=== PATIENT | male | born 1985 | race African-American/Black ===

== ENCOUNTER 2024-05-21 12:47 | Inpatient (IN) | payer MEDICAID, OTHER ==
[~2024-05-21] VITALS: Ht 185.4 cm; Wt 62.3 kg
[2024-05-21 13:48] LABS: Basophils # (auto) 0 10 ^3/uL (0-0.2); Basophils % (auto) 0.7 % (0.0-2.0); Eosinophils # (auto) 0 10 ^3/uL (0-0.8); Eosinophils % (auto) 0.5 % (0.0-7.0); Hematocrit 41.9 % (41.0-53.0); Hemoglobin 14.1 g/dL (13.5-17.5); Lymphocytes # (auto) 1.3 10 ^3/uL (0.4-5.4); Lymphocytes % (auto) 21.6 % (10.0-50.0); Mean Corpuscular Hemoglobin 30.7 pg (28.0-32.0); Mean Corpuscular Hgb Conc. 33.7 g/dL (32.0-36.0); Mean Corpuscular Volume 91.1 fL (80.0-100.0); Monocytes # (auto) 0.4 10 ^3/uL (0-1.3); Monocytes % (auto) 6.2 % (0.0-12.0); Neutrophils # (auto) 4.3 10 ^3/uL (1.6-8.6); Nucleated Red Blood Cells % 0.1 %; Platelet Count (auto) 197 10^3/uL (140-450); Red Blood Cells 4.59 10^6/uL (4.5-5.90); Red Cell Distribution Width 14.9 % (11.8-14.3); White Blood Cell 6.1 10^3/uL (4.4-10.8)
[2024-05-21 14:01] LABS: Chloride 112 mmol/L (98-107); Potassium 4.3 mmol/L (3.5-5.1); Sodium 145 mmol/L (136-145)
[2024-05-21 14:02] LABS: Anion Gap 6 (5-15); Carbon Dioxide 27 mmol/L (20-30)
[2024-05-21 14:03] LABS: Calcium 9.2 mg/dL (8.7-10.4)
[2024-05-21 14:08] LABS: BUN/Creatinine Ratio 14.8 (10.0-20.0); Blood Urea Nitrogen 18 mg/dL (9-23); Glucose 80 mg/dL (74-106)
[2024-05-21 16:16] LABS: Urine Bacteria None Seen /hpf (None Seen)
[2024-05-21] MEDS: IOHEXOL 350 MG/ML 100ML IJ ONE (16:16)
[2024-05-21 16:29] LABS: Urine Blood Negative /uL (Negative); Urine Clarity Clear (Clear); Urine Color Yellow (Yellow); Urine Mucus FEW (None Seen); Urine Protein, UAD TRACE (Negative); Urine Specific Gravity 1.031 (1.001-1.035); Urine Urobilinogen 12 mg/dL (Negative); Urine WBC 1 /hpf (0 - 3); Urine pH 6.5 (5.0-9.0)
[2024-05-21 18:13] LABS: COVID19 ANTIGEN SOFIA FIA NEGATIVE (NEGATIVE)
[2024-05-21] MEDS: cefTRIAXone 1GM/50ML D5W 50 ML IV ONE (18:56)
[2024-05-21] MEDS ORDERED: ONDANSETRON HCL 4 MG/2 ML VIAL IV PRN (20:00)
[2024-05-21] MEDS ORDERED: NITROGLYCERIN 0.4 MG SL TAB SL PRN (20:00)
[2024-05-21] MEDS ORDERED: ACETAMINOPHEN 325 MG TAB PO PRN (20:00)
[2024-05-21] MEDS ORDERED: MORPHINE SULFATE INJ 2 MG/ml SYRG IV PRN (20:00)
[2024-05-21] MEDS ORDERED: HYDROcodone-ACET 5/325MG TAB PO PRN (20:00)
[2024-05-21] MEDS ORDERED: DOCUSATE SOD 100 MG CAP PO PRN (20:00)
[2024-05-21 20:15] VITALS: PULSE 111; RESP 16; O2SAT 96
[2024-05-21 20:34] VITALS: BP 144/105; PULSE 111; RESP 18; TEMP 98.7; O2SAT 99
[2024-05-21 21:05] LABS: Amphetamine Screen, Urine Neg (NEGATIVE); Barbiturate Scree,Urine Neg (NEGATIVE); Benzodiazephine Screen, Urine Neg (NEGATIVE); Cannabinoid Screen, Urine Pos (NEGATIVE); Cocaine Screen, Urine Neg (NEGATIVE); Opiate Scree,Urine Neg (NEGATIVE); Phencyclidine Screen, Urine Neg (NEGATIVE)
[2024-05-21 23:03] VITALS: BP 141/96; PULSE 117; RESP 16; RESP 18; TEMP 98.3; O2SAT 97; O2SAT 98
[2024-05-21] MEDS ORDERED: SUMA100T15 PO (23:42)
[2024-05-22] VITALS (13 sets, daily range): BP systolic 119–144; BP diastolic 71–106; PULSE 93–112; RESP 16–20; TEMP 97.2–98.1; O2SAT 95–100
[2024-05-22] MEDS: FUROSEMIDE 40 MG/4 ML VIAL IV ONE (00:13)
[2024-05-22] MEDS: FUROSEMIDE 40 MG/4 ML VIAL IV SCH (05:25)
[2024-05-22 06:39] LABS: Basophils # (auto) 0 10 ^3/uL (0-0.2); Basophils % (auto) 0.6 % (0.0-2.0); Eosinophils # (auto) 0.1 10 ^3/uL (0-0.8); Eosinophils % (auto) 1.4 % (0.0-7.0); Hematocrit 42.3 % (41.0-53.0); Lymphocytes # (auto) 2.2 10 ^3/uL (0.4-5.4); Lymphocytes % (auto) 32.4 % (10.0-50.0); Mean Corpuscular Hemoglobin 29.9 pg (28.0-32.0); Mean Corpuscular Hgb Conc. 33.2 g/dL (32.0-36.0); Mean Corpuscular Volume 90.1 fL (80.0-100.0); Monocytes # (auto) 0.4 10 ^3/uL (0-1.3); Monocytes % (auto) 5.7 % (0.0-12.0); Neutrophils % (auto) 59.9 % (37.0-80.0); Nucleated Red Blood Cells % 0.1 %; Platelet Count (auto) 189 10^3/uL (140-450); Red Blood Cells 4.69 10^6/uL (4.5-5.90); Red Cell Distribution Width 14.7 % (11.8-14.3); White Blood Cell 6.6 10^3/uL (4.4-10.8)
[2024-05-22 06:48] LABS: Chloride 109 mmol/L (98-107); Potassium 4.3 mmol/L (3.5-5.1); Sodium 143 mmol/L (136-145)
[2024-05-22 06:49] LABS: Anion Gap 7 (5-15); Calcium 9.5 mg/dL (8.7-10.4); Carbon Dioxide 27 mmol/L (20-30)
[2024-05-22 06:54] LABS: Blood Urea Nitrogen 16 mg/dL (9-23); Glucose 102 mg/dL (74-106)
[2024-05-22] MEDS: cefTRIAXone 1GM/50ML D5W 50 ML IV SCH (09:36)
[2024-05-22] MEDS: ENOXAPARIN SOD 40 MG/0.4 ML SYRINGE SC SCH (09:36)
[2024-05-22] MEDS: AZITHROMYCIN 500MG/ 250ML 250 ML IV SCH (10:21)
[2024-05-22] MEDS: ALBUTEROL SULF 2.5 MG/0.5ML(0.5%) NEB SOLN NEB PRN (16:06)
[2024-05-22] MEDS: IPRATROPIUM BROM 0.5 MG/2.5ML INH SOL NEB PRN (16:06)
[2024-05-23] VITALS (8 sets, daily range): BP systolic 105–148; BP diastolic 73–101; PULSE 97–120; RESP 16–18; TEMP 97.2–98.2; O2SAT 95–100
[2024-05-23 06:42] LABS: Basophils # (auto) 0.1 10 ^3/uL (0-0.2); Basophils % (auto) 1.5 % (0.0-2.0); Eosinophils # (auto) 0.1 10 ^3/uL (0-0.8); Eosinophils % (auto) 2.4 % (0.0-7.0); Hematocrit 47.1 % (41.0-53.0); Hemoglobin 15.9 g/dL (13.5-17.5); Lymphocytes # (auto) 2.2 10 ^3/uL (0.4-5.4); Lymphocytes % (auto) 39.6 % (10.0-50.0); Mean Corpuscular Hemoglobin 30.5 pg (28.0-32.0); Mean Corpuscular Hgb Conc. 33.7 g/dL (32.0-36.0); Mean Corpuscular Volume 90.3 fL (80.0-100.0); Monocytes # (auto) 0.3 10 ^3/uL (0-1.3); Neutrophils # (auto) 2.9 10 ^3/uL (1.6-8.6); Neutrophils % (auto) 51.5 % (37.0-80.0); Nucleated Red Blood Cells % 0.6 %; Platelet Count (auto) 198 10^3/uL (140-450); Red Blood Cells 5.22 10^6/uL (4.5-5.90); Red Cell Distribution Width 15.1 % (11.8-14.3); White Blood Cell 5.6 10^3/uL (4.4-10.8)
[2024-05-23 07:02] LABS: Anion Gap 8 (5-15); Carbon Dioxide 30 mmol/L (20-30); Chloride 105 mmol/L (98-107); Potassium 3.8 mmol/L (3.5-5.1); Sodium 143 mmol/L (136-145)
[2024-05-23 07:03] LABS: Calcium 9.8 mg/dL (8.7-10.4)
[2024-05-23 07:08] LABS: BUN/Creatinine Ratio 12.9 (10.0-20.0); Blood Urea Nitrogen 16 mg/dL (9-23); Glucose 94 mg/dL (74-106)
[2024-05-23] MEDS: SACUBITRIL-VALSARTAN 24mg/26mg TAB PO SCH (22:31)
[2024-05-23] MEDS: CARVEDILOL 3.125 MG TAB PO SCH (22:32)
[2024-05-24] VITALS (15 sets, daily range): BP systolic 112–144; BP diastolic 69–87; PULSE 87–111; RESP 16–18; TEMP 97.4–98.4; O2SAT 94–100
[2024-05-24 05:41] LABS: Basophils # (auto) 0 10 ^3/uL (0-0.2); Basophils % (auto) 0.9 % (0.0-2.0); Eosinophils # (auto) 0.1 10 ^3/uL (0-0.8); Eosinophils % (auto) 2.1 % (0.0-7.0); Hematocrit 42.2 % (41.0-53.0); Hemoglobin 14.2 g/dL (13.5-17.5); Lymphocytes # (auto) 2.5 10 ^3/uL (0.4-5.4); Lymphocytes % (auto) 44.6 % (10.0-50.0); Mean Corpuscular Hemoglobin 30.3 pg (28.0-32.0); Mean Corpuscular Hgb Conc. 33.8 g/dL (32.0-36.0); Mean Corpuscular Volume 89.7 fL (80.0-100.0); Monocytes # (auto) 0.3 10 ^3/uL (0-1.3); Monocytes % (auto) 5.5 % (0.0-12.0); Neutrophils # (auto) 2.6 10 ^3/uL (1.6-8.6); Neutrophils % (auto) 46.9 % (37.0-80.0); Nucleated Red Blood Cells % 0.1 %; Platelet Count (auto) 188 10^3/uL (140-450); White Blood Cell 5.6 10^3/uL (4.4-10.8)
[2024-05-24 05:51] LABS: Chloride 107 mmol/L (98-107); Potassium 4.1 mmol/L (3.5-5.1); Sodium 143 mmol/L (136-145)
[2024-05-24 05:52] LABS: Anion Gap 5 (5-15); Calcium 8.8 mg/dL (8.7-10.4); Carbon Dioxide 31 mmol/L (20-30)
[2024-05-24 05:57] LABS: Blood Urea Nitrogen 16 mg/dL (9-23); Glucose 93 mg/dL (74-106)
[2024-05-24 09:06] LABS: Hepatitis B Surface Antibody Positive (Negative)
[2024-05-24 09:18] LABS: Hepatitis B Surface Antigen Negative (Negative)
[2024-05-24] MEDS: EMPAGLIFLOZIN 10 MG TAB PO SCH (11:14)
[2024-05-24] MEDS: SODIUM CHL 3% HYPERTONIC 500 ML BAG IN ONE (15:30)
[2024-05-25] VITALS (10 sets, daily range): BP systolic 111–133; BP diastolic 72–90; PULSE 80–106; RESP 16–18; TEMP 97.4–97.7; O2SAT 94–100
[2024-05-25 05:10] LABS: Basophils # (auto) 0 10 ^3/uL (0-0.2); Basophils % (auto) 0.9 % (0.0-2.0); Eosinophils # (auto) 0.1 10 ^3/uL (0-0.8); Eosinophils % (auto) 2.9 % (0.0-7.0); Hematocrit 44.6 % (41.0-53.0); Lymphocytes # (auto) 2.3 10 ^3/uL (0.4-5.4); Lymphocytes % (auto) 46.9 % (10.0-50.0); Mean Corpuscular Hemoglobin 30.7 pg (28.0-32.0); Mean Corpuscular Hgb Conc. 33.5 g/dL (32.0-36.0); Mean Corpuscular Volume 91.6 fL (80.0-100.0); Monocytes # (auto) 0.4 10 ^3/uL (0-1.3); Monocytes % (auto) 7.3 % (0.0-12.0); Neutrophils # (auto) 2.1 10 ^3/uL (1.6-8.6); Nucleated Red Blood Cells % 0.5 %; Platelet Count (auto) 187 10^3/uL (140-450); Red Blood Cells 4.87 10^6/uL (4.5-5.90); White Blood Cell 4.9 10^3/uL (4.4-10.8)
[2024-05-25 05:17] LABS: Chloride 108 mmol/L (98-107); Potassium 3.9 mmol/L (3.5-5.1); Sodium 142 mmol/L (136-145)
[2024-05-25 05:18] LABS: Anion Gap 7 (5-15); Carbon Dioxide 27 mmol/L (20-30)
[2024-05-25 05:19] LABS: Calcium 8.7 mg/dL (8.7-10.4)
[2024-05-25 05:23] LABS: BUN/Creatinine Ratio 9.2 (10.0-20.0); Blood Urea Nitrogen 12 mg/dL (9-23); Glucose 92 mg/dL (74-106)
[2024-05-25] MEDS: SODIUM CHL 3% HYPERTONIC 500 ML BAG IN ONE ×2 (14:28→14:29)
[2024-05-26] VITALS (9 sets, daily range): BP systolic 100–144; BP diastolic 52–77; PULSE 61–108; RESP 17–18; TEMP 97.6–98.7; O2SAT 94–100
[2024-05-26 05:49] LABS: Basophils # (auto) 0.1 10 ^3/uL (0-0.2); Basophils % (auto) 1.2 % (0.0-2.0); Eosinophils # (auto) 0.2 10 ^3/uL (0-0.8); Eosinophils % (auto) 3.1 % (0.0-7.0); Hematocrit 45.9 % (41.0-53.0); Hemoglobin 15.2 g/dL (13.5-17.5); Lymphocytes # (auto) 2.3 10 ^3/uL (0.4-5.4); Lymphocytes % (auto) 47.7 % (10.0-50.0); Mean Corpuscular Hgb Conc. 33.2 g/dL (32.0-36.0); Mean Corpuscular Volume 90.2 fL (80.0-100.0); Monocytes # (auto) 0.4 10 ^3/uL (0-1.3); Monocytes % (auto) 9.3 % (0.0-12.0); Neutrophils # (auto) 1.9 10 ^3/uL (1.6-8.6); Neutrophils % (auto) 38.7 % (37.0-80.0); Nucleated Red Blood Cells % 0.3 %; Platelet Count (auto) 193 10^3/uL (140-450); Red Blood Cells 5.08 10^6/uL (4.5-5.90); Red Cell Distribution Width 14.9 % (11.8-14.3); White Blood Cell 4.8 10^3/uL (4.4-10.8)
[2024-05-26 06:06] LABS: Anion Gap 5 (5-15); Calcium 9.1 mg/dL (8.7-10.4); Carbon Dioxide 30 mmol/L (20-30); Chloride 106 mmol/L (98-107); Potassium 4.1 mmol/L (3.5-5.1); Sodium 141 mmol/L (136-145)
[2024-05-26 06:12] LABS: BUN/Creatinine Ratio 9.2 (10.0-20.0); Blood Urea Nitrogen 12 mg/dL (9-23); Glucose 80 mg/dL (74-106)
[2024-05-27] VITALS (11 sets, daily range): BP systolic 91–145; BP diastolic 57–110; PULSE 80–101; RESP 16–20; TEMP 97.5–98.5; O2SAT 95–100
[2024-05-28] VITALS (9 sets, daily range): BP systolic 100–131; BP diastolic 57–92; PULSE 77–112; RESP 16–19; TEMP 97.8–98.4; O2SAT 97–100
[2024-05-29] VITALS (7 sets, daily range): BP systolic 95–137; BP diastolic 68–91; PULSE 78–108; RESP 15–18; TEMP 97.6–98.3; O2SAT 100
[2024-05-29] MEDS: FUROSEMIDE 20 MG TAB PO SCH (06:11)
[2024-05-29] MEDS: DOXYCYCLINE 100 MG TAB/CAP PO SCH (10:53)
[2024-05-30 01:00] VITALS: BP 136/73; PULSE 88; RESP 18; TEMP 98.3; O2SAT 100
[2024-05-30 05:00] VITALS: BP 163/95; PULSE 80; RESP 20; TEMP 98.6; O2SAT 100
[2024-05-30] MEDS: hydrALAZINE HCL 20 MG/ML VL IV PRN (05:12)
[2024-05-30 08:00] VITALS: PULSE 104
[2024-05-30 08:34] VITALS: BP 115/55; PULSE 100; RESP 16; TEMP 97.5; O2SAT 97
[2024-05-30] MEDS ORDERED: EMPA1TAB PO (12:01)
[2024-05-30] MEDS ORDERED: SACU1TAB PO (12:23)
[2024-05-30] MEDS ORDERED: CARV6.2551 PO (12:23)
[2024-05-30] MEDS ORDERED: FURO40TA4 PO (12:23)
[2024-05-30] MEDS ORDERED: DOX100T PO (12:23)
[2024-05-30 12:46] LABS: QuantiFERON-TB Gold Plus Negative (Negative)
[2024-05-30 13:14] VITALS: BP 96/65; PULSE 80; RESP 16; TEMP 97.6; O2SAT 100
[2024-05-30 13:25] VITALS: BP 96/65; PULSE 80; RESP 16; TEMP 97.6; O2SAT 100
== END 2024-05-30 14:45 | disposition home or self-care (01) | DRG 139 ==
LOC: ER 12:47 → TELE 20:12 → TELE-CENTR 23:01 → TELE-EAST 05-22 19:40
PROVIDERS: ADMIT Nurse Practitioner Family; ATTEND Hospitalist
DX: J12.9 Viral pneumonia, unspecified (principal); I50.23 Acute on chronic systolic (congestive) heart failure; N17.9 Acute kidney failure, unspecified; I27.20 Pulmonary hypertension, unspecified; I42.0 Dilated cardiomyopathy; N18.9 Chronic kidney disease, unspecified; F12.90 Cannabis use, unspecified, uncomplicated; Z20.822 Contact with and (suspected) exposure to COVID-19; R91.1 Solitary pulmonary nodule; J98.4 Other disorders of lung; F15.10 Other stimulant abuse, uncomplicated; B19.20 Unspecified viral hepatitis C without hepatic coma; I34.0 Nonrheumatic mitral (valve) insufficiency; Z80.3 Family history of malignant neoplasm of breast; Z91.018 Allergy to other foods
CPT/HCPCS: 36415; 71275; 76604; 80048; 80307; 81001; 83880; 84484; 85025; 85379; 86703; 86706; 86803; 87040; 87070; 87205; 87340; 87426; 87556; 93306; 93970; 94640; 96365; G0378

== ENCOUNTER 2025-02-06 06:10 | Emergency (ER) | payer MEDICAID ==
[~2025-02-06] VITALS: Ht 185.4 cm; Wt 81.8 kg
[~2025-02-06 06:10] MED LIST: CARV6.2551 PO; DOX100T PO; EMPA1TAB PO; FURO40TA4 PO; SACU1TAB PO; SUMA100T15 PO
--- NOTE | 2025-02-06 06:48 | ECG ---
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
[2025-02-06 06:52] VITALS: TEMP 97.9
[2025-02-06 06:54] VITALS: PULSE 104; RESP 17; O2SAT 95
[2025-02-06 08:02] VITALS: PULSE 104; RESP 31; O2SAT 95
--- NOTE | 2025-02-06 08:09 | ED.PDOC ---
GI ASSESSMENT HPI Comments 39 year old male ISREAL presents to the ED with chief complaint of N/V w/ syncope. Patient reports that he has been experiencing N/V since 4am along with a noted possible syncopal episode and SOB. Patient states he was recently diagnosed with CHF, but is not currently on any medication. Patient denies any chest pain, diarrhea, abdominal pain, fever, chills, or dizziness. Chief Complaint: Syncope Time Seen by MD: 08:08 Reviewed Notes: Nurses Notes, Clothes Separator Notes, Medications, Allergies Allergies: Coded Allergies: [place] (Verified Allergy, Unknown, 05/27/24) Home Meds Active Scripts Doxycycline Monohydrate (Doxycycline Monohydrate) 100 Mg Tab, 100 MG PO BID, #10 TAB Prov:MIRNA STILL MD 05/30/24 Carvedilol (Carvedilol) 6.25 Mg Tab, 1 TAB PO BID, #60 TAB 1 Refill Prov:MIRNA STILL MD 05/30/24 Furosemide (Furosemide) 40 Mg Tab, 1 TAB PO DAILY, #90 TAB Prov:MIRNA STILL MD 05/30/24 Sacubitril-Valsartan (Entresto 24-26 mg) 1 Tab Tab, 1 TAB PO BID, #90 TAB 1 Refill Prov:MIRNA STILL MD 05/30/24 Empagliflozin (Jardiance) 10 Mg Tab, 10 MG PO DAILY, #60 TAB Prov:MIRNA STILL MD 05/30/24 Reported Medications Sumatriptan Succinate (Sumatriptan Succinate) 100 Mg Tab, 100 MG PO PRN for FOR HEADACHE, TAB 05/21/24 Information Source: Patient, Emergency Med Personnel Mode of Arrival: EMS Timing: Hours Duration: Since onset Prehospital treatment: None Vomitus: Watery Stool: Normal Severity: Moderate Recent: None Recent Hx of: None Pain Location: None Modifying Factors: Nothing Associated sign and symptoms: Nausea, Vomiting Past Medical History PAST MEDICAL HISTORY: CHF Surgical History: Denies all surgeries Family History Family History: Family hx of Cancer Social History Smoker: Non-Smoker Alcohol: Occasionally Drugs: Marijuana Lives In: Home Constitutional: denies: chills, diaphoresis, fatigue, fever, malaise, sweats, weakness, others EENTM: denies: blurred vision, double vision, ear bleeding, ear discharge, ear drainage, ear pain, ear ringing, eye pain, eye redness, hearing loss, mouth pain, mouth swelling, nasal discharge, nose bleeding, nose congestion, nose pain, photophobia, tearing, throat pain, throat swelling, voice changes, others Respiratory: reports: shortness of breath; denies: cough, hemoptysis, orthopnea, SOB at rest, SOB with excertion, stridor, wheezing, others Cardiovascular: reports: syncope; denies: chest pain, dizzy spells, diaphoresis, Dyspnea on exertion, edema, irregular heart beat, left arm pain, lightheadedness, palpitations, PND, others Gastrointestinal: reports: nausea, vomiting; denies: abdomen distended, abdominal pain, blood streaked bowels, constipated, diarrhea, dysphagia, difficulty swallowing, hematemesis, melena, poor appetite, poor fluid intake, r ectal bleeding, rectal pain, others Genitourinary: denies: burning, dysuria, flank pain, frequency, hematuria, incontinence, penile discharge, penile sore, pain, testicle pain, testicle swelling, urgency, others Neurological: denies: dizziness, fainting, headache, left sided numbness, left sided weakness, numbness, paresthesia, pre-existing deficit, right sided numbness, right sided weakness, seizure, speech problems, tingling, tremors, weakness, others Musculoskeletal: denies: back pain, gout, joint pain, joint swelling, muscle pain, muscle stiffness, neck pain, others Integumetry: denies: bruises, change in color, change in hair/nails, dryness, laceration, lesions, lumps, rash, wounds, others Allergic/Immunocompromised: denies: Difficulty Healing, Frequent Infections, Hives, Itching, others Hematologic/Lymphatic: denies: anemia, blood clots, easy bleeding, easy bruising, swollen glands, others Endocrine: denies: excessive hunger, excessive sweating, excessive thirst, excessive urination, flushing, intolerance to cold, intolerance to heat, unexplained weight gain, unexplained weight loss, others Psychiatric: denies: anxiety, bipolar disorder, depression, hopeless, panic disorder, schizophrenia, sleepless, suicidal, others All Other Systems: Reviewed and Negative Physical Exam General Appearance: Mild Distress, Moderate Distress, Normal HEENT: Normal ENT Inspection, PERRL/EOMI Neck: Full Range of Motion, Non-Tender, Normal, Normal Inspection Respiratory: Chest Non-Tender, Lungs Clear, No Accessory Muscle Use, No Respiratory Distress, Normal Breath Sounds Cardiovascular: No Edema, No JVD, No Murmur, No Gallop, Normal Peripheral Pulses, Regular Rate/Rhythm Breast Exam: Deferred Gastrointestinal: No Organomegaly, Non Tender, No Pulsatile Mass, Normal Bowel Sounds, Soft Genitalia: Deferred Pelvic: Deferred Rectal: Deferred Extremities: No calf tenderness, Normal capillary refill, Normal inspection, Normal range of motion, Non-tender, No pedal edema Musculoskeletal : Apperance: Normal Neurologic: Alert, human services worker II-XII nml as Tested, No Motor Deficits, Normal Affect, Normal Mood, No Sensory Deficits Cerebellar Function: Normal Reflexes: Normal Skin: Dry, Normal Color, Warm Peripheral Pulses: 1+ carotid (R), 1+ carotid (L) Lymphatic: No Adenopathy Was a procedure done? Was a procedure done?: No GI differential Dx Differential Diagnosis: Gastritis/PUD, Gastroenteritis, Inflammatory BD, Porphyria, UTI, Dehydration, Diabetes/ DKA, Drug toxicity (Porphyria), Other (Porphyria) X-Ray, Labs, Meds, VS Vital Signs Date Time Temp Pulse Resp B/P (MAP) Pulse Ox O2 Delivery O2 Flow Rate FiO2 02/06/25 15:20 114 21 136/103 (114) 96 02/06/25 13:00 104 20 144/107 (119) 96 02/06/25 11:00 106 23 143/96 (112) 97 02/06/25 08:02 104 31 95 Nasal Cannula* 2 28 02/06/25 08:00 104 31 136/108 (117) 95 02/06/25 06:54 104 17 95 Room Air* 0 21 02/06/25 06:52 97.9 104 17 131/95 (107) 96 97.9 02/06/25 06:13 97.7 105 20 140/100 (113) 98 97.7 02/06/25 06:10 105 Lab Test 02/06/25 12:30 02/06/25 08:34 Range/Units Urine Color Light-yellow Yellow Urine Clarity Clear Clear Urine pH 5.5 5.0-9.0 Urine Specific [place] 1.021 1.001-1.035 Urine Protein Negative Negative Urine Ketones Negative Negative Urine Blood Negative Negative /uL Urine Nitrite Negative Negative Urine Bilirubin Negative Negative Urine Urobilinogen Normal Negative mg/dL Urine Leukocyte Esterase Negative Negative /uL Urine RBC 1 0 - 3 /hpf Urine Microscopic WBC < 1 0-3 /HPF Urine Squamous Epithelial Cells None seen <5 /hpf Urine Bacteria None seen None Seen /hpf Urine Mucus Few None Seen Urine Glucose Normal Normal mg/dL Urine Opiates Screen Neg NEGATIVE Urine Fentanyl Screen Neg NEGATIVE Urine Barbiturates Screen Neg NEGATIVE Urine Phencyclidine Screen Neg NEGATIVE Urine Amphetamines Screen Pos NEGATIVE Urine Benzodiazepines Screen Neg NEGATIVE Urine Cocaine Screen Neg NEGATIVE Urine Cannabinoids Screen Pos NEGATIVE White Blood Count 6.7 4.4-10.8 10^3/uL Red Blood Count 4.56 4.5-5.90 10^6/uL Hemoglobin 13.4 L 13.5-17.5 g/dL Hematocrit 40.5 L 41.0-53.0 % Mean Corpuscular Volume 89.0 80.0-100.0 fL Mean Corpuscular Hemoglobin 29.5 28.0-32.0 pg Mean Corpuscular Hemoglobin Concent 33.1 32.0-36.0 g/dL Red Cell Distribution Width 14.7 H 11.8-14.3 % Platelet Count 157 140-450 10^3/uL Mean Platelet Volume 9.7 6.9-10.8 fL Neutrophils (%) (Auto) 74.1 37.0-80.0 % Lymphocytes (%) (Auto) 17.8 10.0-50.0 % Monocytes (%) (Auto) 6.1 0.0-12.0 % Eosinophils (%) (Auto) 1.5 0.0-7.0 % Basophils (%) (Auto) 0.5 0.0-2.0 % Neutrophils # (Auto) 4.9 1.6-8.6 10 ^3/uL Lymphocytes # (Auto) 1.2 0.4-5.4 10 ^3/uL Monocytes # (Auto) 0.4 0-1.3 10 ^3/uL Eosinophils # (Auto) 0.1 0-0.8 10 ^3/uL Basophils # (Auto) 0 0-0.2 10 ^3/uL Nucleated Red Blood Cells 0.3 % Sodium Level 139 136-145 mmol/L Potassium Level 4.8 3.5-5.1 mmol/L Chloride Level 107 98-107 mmol/L Carbon Dioxide Level 25 20-31 mmol/L Anion Gap 7 5-15 Blood Urea Nitrogen 15 9-23 mg/dL Creatinine 1.22 0.700-1.30 mg/dL Glomerular Filtration Rate Calc 78 >90 mL/min BUN/Creatinine Ratio 12.3 10.0-20.0 Serum Glucose 99 74-106 mg/dL Calcium Level 9.2 8.7-10.4 mg/dL Magnesium Level 2.0 1.6-2.6 mg/dL Total Bilirubin 0.6 0.2-1.0 mg/dL Aspartate Amino Transferase (AST) 37 13-40 U/L Alanine Aminotransferase (ALT) 64 H 7-40 U/L Alkaline Phosphatase 56 46-116 U/L Total Protein 5.8 5.7-8.2 g/dL Albumin 3.7 3.2-4.8 g/dL Current Medications Medications (Trade) Dose Ordered Sig/Devorah Route Start Time Stop Time Status Last Admin Sodium Chloride 1,000 ml @ 1,000 mls/hr Q1H ONCE IVB 02/06/25 08:30 02/06/25 09:29 DC 02/06/25 08:53 Chest XR: FINDINGS: Lines and Tubes: None Lungs: No focal consolidation. Pleura: No effusion. No pneumothorax. Cardiomediastinal contours: Unremarkable Bones: No acute osseous abnormality. IMPRESSION: No acute cardiopulmonary disease. X-Ray, Labs, Meds, VS Comment COURSE IN THE EMERGENCY DEPARTMENT EVENTFUL PATIENT CAME IN COMPLAINING OF SYNCOPE HAS A HISTORY OF PORPHYRIA CHEST X-RAY IS NORMAL EKG SHOWS SINUS TACHYCARDIA AT 1:05 A.M. WITH LEFT ATRIAL ENLARGEMENT UDS IS POSITIVE FOR AMPHETAMINE AND MARIJUANA URINE NEGATIVE CBC NORMAL CMP NEGATIVE MAGNESIUM 2.0 PATIENT WILL BE DISCHARGED HOME TO FOLLOW UP WITH HIS PCP HE NEEDS TO STOP THE DRUGS Images Reviewed?: Images reviewed and evaluated by me Time of 1ST Reevaluation: 09:08 Reevaluation 1ST: Improved Patient Education/Counseling: Diagnosis, Treatment Family Education/Counseling: No Family Present Departure 1 Departure Time of Disposition: 16:07 Impression: Primary Impression: Syncopal episodes Qualified Codes: R55 - Syncope and collapse Additional Impressions: Porphyria Qualified Codes: 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 Electronically submitted by Mahamed Mosher ([email or web address]). I personally scribed for LINA STRANGE MD ([email or web address]) on 02/06/25 at 09:25. Electronically submitted by Mahamed Mosher ([email or web address]). LINA STRANGE MD Feb 06, 2025 08:09
[2025-02-06 08:42] LABS: Basophils # (auto) 0 10 ^3/uL (0-0.2); Basophils % (auto) 0.5 % (0.0-2.0); Eosinophils # (auto) 0.1 10 ^3/uL (0-0.8); Eosinophils % (auto) 1.5 % (0.0-7.0); Hematocrit 40.5 % (41.0-53.0); Hemoglobin 13.4 g/dL (13.5-17.5); Lymphocytes # (auto) 1.2 10 ^3/uL (0.4-5.4); Lymphocytes % (auto) 17.8 % (10.0-50.0); Mean Corpuscular Hemoglobin 29.5 pg (28.0-32.0); Mean Corpuscular Hgb Conc. 33.1 g/dL (32.0-36.0); Monocytes # (auto) 0.4 10 ^3/uL (0-1.3); Monocytes % (auto) 6.1 % (0.0-12.0); Neutrophils # (auto) 4.9 10 ^3/uL (1.6-8.6); Neutrophils % (auto) 74.1 % (37.0-80.0); Nucleated Red Blood Cells % 0.3 %; Platelet Count (auto) 157 10^3/uL (140-450); Red Blood Cells 4.56 10^6/uL (4.5-5.90); Red Cell Distribution Width 14.7 % (11.8-14.3); White Blood Cell 6.7 10^3/uL (4.4-10.8)
[2025-02-06] MEDS: SODIUM CHLORIDE 0.9% 1,000 ML IVB ONE (08:53)
[2025-02-06 09:06] LABS: Albumin 3.7 g/dL (3.2-4.8); Alkaline Phosphatase 56 U/L (46-116); Anion Gap 7 (5-15); Aspartate Aminotransferase 37 U/L (13-40); BUN/Creatinine Ratio 12.3 (10.0-20.0); Blood Urea Nitrogen 15 mg/dL (9-23); Calcium 9.2 mg/dL (8.7-10.4); Carbon Dioxide 25 mmol/L (20-31); Chloride 107 mmol/L (98-107); Glucose 99 mg/dL (74-106); Potassium 4.8 mmol/L (3.5-5.1); Sodium 139 mmol/L (136-145); Total Protein 5.8 g/dL (5.7-8.2)
[2025-02-06 09:07] LABS: Alanine Aminotransferase 64 U/L (7-40); Bilirubin, Total 0.6 mg/dL (0.2-1.0)
--- NOTE | 2025-02-06 09:17 | DVH ---
CHEST RADIOGRAPH Indication: Syncope Technique: Lateral and frontal view of the chest was obtained Comparison: None FINDINGS: Lines and Tubes: None Lungs: No focal consolidation. Pleura: No effusion. No pneumothorax. Cardiomediastinal contours: Unremarkable Bones: No acute osseous abnormality. IMPRESSION: No acute cardiopulmonary disease.
[2025-02-06 12:40] LABS: Urine Bacteria None Seen /hpf (None Seen)
[2025-02-06 12:54] LABS: Urine Blood Negative /uL (Negative); Urine Clarity Clear (Clear); Urine Color Light-Yellow (Yellow); Urine Mucus FEW (None Seen); Urine Protein, UAD Negative (Negative); Urine Specific Gravity 1.021 (1.001-1.035); Urine Squamous Epithelial Cell None Seen /hpf (<5); Urine Urobilinogen Normal (Negative); Urine WBC < 1 /HPF (0-3); Urine pH 5.5 (5.0-9.0)
[2025-02-06 13:05] LABS: Cannabinoid Screen, Urine Pos (NEGATIVE)
[2025-02-06 13:06] LABS: Amphetamine Screen, Urine Pos (NEGATIVE); Barbiturate Scree,Urine Neg (NEGATIVE); Benzodiazephine Screen, Urine Neg (NEGATIVE); Cocaine Screen, Urine Neg (NEGATIVE); Opiate Scree,Urine Neg (NEGATIVE); Phencyclidine Screen, Urine Neg (NEGATIVE)
[2025-02-06 15:20] VITALS: BP 136/103; PULSE 114; RESP 21; O2SAT 96
== END 2025-02-06 16:53 | disposition home or self-care (01) ==
LOC: EDBD 06:10 → ER 06:10
DX: R55 Syncope and collapse (principal); E80.20 Unspecified porphyria; F15.10 Other stimulant abuse, uncomplicated; F12.90 Cannabis use, unspecified, uncomplicated; I50.9 Heart failure, unspecified; Z79.84 Long term (current) use of oral hypoglycemic drugs; Z79.899 Other long term (current) drug therapy
CPT/HCPCS: 36415; 71046; 80053; 80307; 81001; 82947; 83735; 85025; 93005; 96360; 99285; J7030

== ENCOUNTER 2025-03-04 10:34 | Inpatient (IN) | payer MEDICAID ==
[2025-03-03 21:50] VITALS: BP 142/105; PULSE 101; RESP 17; TEMP 97.7; O2SAT 98
[~2025-03-04] VITALS: Ht 185.4 cm; Wt 76.7 kg
--- NOTE | 2025-03-04 10:48 | ECG ---
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
--- NOTE | 2025-03-04 11:04 | ED.PDOC ---
SOB-HPI HPI Comments 39 y/o M, BIBA, with PMHx of CHF, Lung Lesion, and porphyria presents to the ED for CC of shortness of breath. EMS reports, patient is coming from home where he complains of shortness of breath onset, today (03/04/25). Patient reports, shortness of breath to worsen while lying flat. Patient was previously admitted to [facility] on 05/21/24 for elevated BNP. Patient endorses, recently running out of his Lasix medication. Patient comments on using methamphetamines and marijuana. No other symptoms or modifying factors present at this time. Chief Complaint: Shortness of Breath Time Seen by MD: 10:35 Reviewed notes: Nurses Notes, Safe Technician Notes, Medications, Allergies Information Source: Patient, Emergency Med Personnel Mode of Arrival: EMS Severity: Moderate Timing: Days Duration: Since onset Context: At Rest PE Risk Factors: None History of: CHF Prehospital treatment: None Modifying Factors: Laying flat; Exertion, Anxiety, Inhaler, Rest, Sitting up, Nothing Associated Signs and Symptoms: Fever Past Medical History PAST MEDICAL HISTORY: CHF Surgical History: Denies all surgeries Family History Family History: Family hx of Cancer Social History Smoker: Non-Smoker Alcohol: Occasionally Drugs: Marijuana, Methamphetamine Lives In: Home Constitutional: denies: chills, diaphoresis, fatigue, fever, malaise, sweats, weakness, others EENTM: denies: blurred vision, double vision, ear bleeding, ear discharge, ear drainage, ear pain, ear ringing, eye pain, eye redness, hearing loss, mouth pain, mouth swelling, nasal discharge, nose bleeding, nose congestion, nose pain, photophobia, tearing, throat pain, throat swelling, voice changes, others Respiratory: reports: shortness of breath; denies: cough, hemoptysis, orthopnea, SOB at rest, SOB with excertion, stridor, wheezing, others Cardiovascular: denies: chest pain, dizzy spells, diaphoresis, Dyspnea on exertion, edema, irregular heart beat, left arm pain, lightheadedness, palpitations, PND, syncope, others Gastrointestinal: denies: abdomen distended, abdominal pain, blood streaked bowels, constipated, diarrhea, dysphagia, difficulty swallowing, hematemesis, melena, nausea, poor appetite, poor fluid intake, rectal bleeding, rectal pain, vomiting, others Genitourinary: denies: burning, dysuria, flank pain, frequency, hematuria, incontinence, penile discharge, penile sore, pain, testicle pain, testicle swelling, urgency, others Neurological: denies: dizziness, fainting, headache, left sided numbness, left sided weakness, numbness, paresthesia, pre-existing deficit, right sided numbness, right sided weakness, seizure, speech problems, tingling, tremors, weakness, others Musculoskeletal: denies: back pain, gout, joint pain, joint swelling, muscle pain, muscle stiffness, neck pain, others Integumetry: denies: bruises, change in color, change in hair/nails, dryness, laceration, lesions, lumps, rash, wounds, others Allergic/Immunocompromised: denies: Difficulty Healing, Frequent Infections, Hives, Itching, others Hematologic/Lymphatic: denies: anemia, blood clots, easy bleeding, easy bruising, swollen glands, others Endocrine: denies: excessive hunger, excessive sweating, excessive thirst, excessive urination, flushing, intolerance to cold, intolerance to heat, unexplained weight gain, unexplained weight loss, others Psychiatric: denies: anxiety, bipolar disorder, depression, hopeless, panic disorder, schizophrenia, sleepless, suicidal, others All Other Systems: Reviewed and Negative Physical Exam General Appearance: No Apparent Distress, Normal HEENT: Normal ENT Inspection, Pharynx Normal, TMs Normal Neck: Full Range of Motion, Non-Tender, Normal, Normal Inspection Respiratory: Chest Non-Tender, Lungs Clear, No Accessory Muscle Use, No Respiratory Distress, Normal Breath Sounds Cardiovascular: No Murmur, No Gallop, Normal Peripheral Pulses, Tachycardia Breast Exam: Deferred Gastrointestinal: No Organomegaly, Non Tender, No Pulsatile Mass, Normal Bowel Sounds, Soft Genitalia: Deferred Pelvic: Deferred Rectal: Deferred Extremities: Normal capillary refill, Normal inspection, Normal range of motion, Pedal edema (bilateral) Musculoskeletal : Apperance: Normal Neurologic: Alert, plant cytologist II-XII nml as Tested, No Motor Deficits, Normal Affect, Normal Mood, No Sensory Deficits Cerebellar Function: Normal Reflexes: Normal Skin: Dry, Normal Color, Warm Lymphatic: No Adenopathy EKG EKG : Pulse Rate (adult): 113 Cardiac Rhythm: ST Block: None Hypertrophy: None ST: Nonsp Was a procedure done? Was a procedure done?: No Differential Dx Differential Diagnosis: Anxiety, Asthma, Bronchitis, CHF, COPD, Dysrhythmia, Hyperventilation, Myocardial infarction, Panic Attack, Pneumonia, Pneumothorax, PSVT, Pulmonary Embolism, Respiratory Distress, Sinusitis, Pharyngitis, URI X-Ray, Labs, Meds, VS Vital Signs Date Time Temp Pulse Resp B/P (MAP) Pulse Ox O2 Delivery O2 Flow Rate FiO2 03/04/25 14:00 114 27 158/127 (137) 95 03/04/25 12:00 110 14 142/118 (126) 92 03/04/25 11:19 149/113 03/04/25 11:00 97.8 111 25 149/113 (125) 96 97.8 03/04/25 10:44 113 03/04/25 10:40 97.6 116 18 173/130 (144) 99 97.6 Lab Test 03/04/25 14:22 03/04/25 13:03 03/04/25 12:41 03/04/25 11:14 Range/Units Troponin I High Sensitivity 24 26 25 </=54 ng/L Urine Opiates Screen Neg NEGATIVE Urine Fentanyl Screen Neg NEGATIVE Urine Barbiturates Screen Neg NEGATIVE Urine Phencyclidine Screen Neg NEGATIVE Urine Amphetamines Screen Neg NEGATIVE Urine Benzodiazepines Screen Neg NEGATIVE Urine Cocaine Screen Neg NEGATIVE Urine Cannabinoids Screen Neg NEGATIVE White Blood Count 4.9 4.4-10.8 10^3/uL Red Blood Count 3.72 L 4.5-5.90 10^6/uL Hemoglobin 11.0 L 13.5-17.5 g/dL Hematocrit 33.9 L 41.0-53.0 % Mean Corpuscular Volume 91.0 80.0-100.0 fL Mean Corpuscular Hemoglobin 29.7 28.0-32.0 pg Mean Corpuscular Hemoglobin Concent 32.6 32.0-36.0 g/dL Red Cell Distribution Width 15.0 H 11.8-14.3 % Platelet Count 148 140-450 10^3/uL Mean Platelet Volume 9.4 6.9-10.8 fL Neutrophils (%) (Auto) 61.6 37.0-80.0 % Lymphocytes (%) (Auto) 26.8 10.0-50.0 % Monocytes (%) (Auto) 8.0 0.0-12.0 % Eosinophils (%) (Auto) 2.7 0.0-7.0 % Basophils (%) (Auto) 0.9 0.0-2.0 % Neutrophils # (Auto) 3.0 1.6-8.6 10 ^3/uL Lymphocytes # (Auto) 1.3 0.4-5.4 10 ^3/uL Monocytes # (Auto) 0.4 0-1.3 10 ^3/uL Eosinophils # (Auto) 0.1 0-0.8 10 ^3/uL Basophils # (Auto) 0 0-0.2 10 ^3/uL Nucleated Red Blood Cells 0.4 % D-Dimer, Quantitative 4.16 H 0.0-0.49 mg/L FEU Sodium Level 141 136-145 mmol/L Potassium Level 4.2 3.5-5.1 mmol/L Chloride Level 109 H 98-107 mmol/L Carbon Dioxide Level 21 20-31 mmol/L Anion Gap 11 5-15 Blood Urea Nitrogen 21 9-23 mg/dL Creatinine 1.33 H 0.700-1.30 mg/dL Glomerular Filtration Rate Calc 71 >90 mL/min BUN/Creatinine Ratio 15.8 10.0-20.0 Serum Glucose 98 74-106 mg/dL Calcium Level 9.5 8.7-10.4 mg/dL B-Type Natriuretic Peptide 1307.37 0-100 pg/mL Current Medications Medications (Trade) Dose Ordered Sig/Devorah Route Start Time Stop Time Status Last Admin Furosemide (Lasix Injection) 40 mg ONCE ONCE IV 03/04/25 11:00 03/04/25 11:01 DC 03/04/25 11:19 [place] [address] Ph: [phone] DIAGNOSTIC IMAGING Diagnostic Imaging Report : [id number] Signed PATIENT: TREVON CHANCE ACCT: [id number] UNIT: [id number] : 1985 LOC: ER ROOM / BED: / AGE / SEX: 39 / M ADM STATUS: REG ER SERVICE 1045 ORDERING PHYSICIAN: NIK REBOLLEDO MD PROCEDURE(s): CXRP - CHEST PORTABLE REASON: sob ORDER NUMBER(s): [id number], ACCESSION NUMBER(s): [id number] CHEST PORTABLE, HISTORY: sob COMPARISON: None None TECHNICAL DATA: 1 view of the chest was obtained. FINDINGS: Lines and tubes: None Cardiomediastinal silhouette: normal Pulmonary vasculature: normal Lung expansion: normal Lung airspace: normal Lung interstitium: normal Pleura: normal Pneumothorax: no Bones: Unremarkable Other: no IMPRESSION: No acute intrathoracic abnormality. ATED BY: ARTIE DEL VALLE MD DICTATED DATE/TIME: 03/04/251120 SIGNED BY: ARTIE DEL VALLE MD SIGNED DATE/TIME: 03/04/251120 CC: Time of 1ST Reevaluation: 11:05 Reevaluation 1ST: Unchanged Patient Education/Counseling: Diagnosis, Treatment Family Education/Counseling: No Family Present Additional Information The following tests were ordered, and results were reviewed by me: LABS, EKGX3, CXR Additional Information was gathered from interviewing the following independent historians: EMS I reviewed and agreed with the following test results read by other providers: CXR I discussed treatment and results with medical personnel and: patient Comprehensive systems review obtained and negative except for what is stated in the HPI. pt has no PE risk factors, but he is tachycardic and ddi is elevated. his renal function is compromised. i will admit him for vq scan. iu will cover him with lovenox in the meantime Departure 1 Departure Time of Disposition: 15:28 Impression: Primary Impression: Dyspnea Qualified Codes: R06.00 - Dyspnea, unspecified Additional Impressions: Elevated d-dimer Tachycardia Disposition: ADMITTED INPATIENT Admit to: [facility] Condition: Stable Discharged With: Self Critical Care Note Critical Care Time?: Yes (55 min-critical care time only) Critical care comment: due to concerns for patient's condition deteriorating, the care required my highest level of attention and readiness to intervene. i assessed the patient's condition, ordered the proper tests and treatments, reassessed for response and reviewed the results. i communicated with medical personnel and formulated a plan of care. total critical care time does not include any procedures Stability Stability form required: No Heart Score Heart Score: Heart Score Response (Comments) Value History N/A 0 EKG N/A 0 Age N/A 0 Risk Factors N/A 0 Troponin N/A 0 Total 0 I personally scribed for NIK REBOLLEDO MD ([facility]) on 03/04/25 at 11:04. Electronically submitted by Jenna Greer ([email or web address]). I personally scribed for NIK REBOLLEDO MD ([facility]) on 03/04/25 at 11:10. Electronically submitted by Jenna Greer ([email or web address]). I personally scribed for NIK REBOLLEDO MD ([facility]) on 03/04/25 at 11:14. Electronically submitted by eJnna Greer ([email or web address]). I personally scribed for NIK REBOLLEDO MD ([facility]) on 03/04/25 at 11:32. Electronically submitted by Jenna Greer ([email or web address]). NIK REBOLLEDO MD March 04, 2025 11:04
[2025-03-04] MEDS: FUROSEMIDE 40 MG/4 ML VIAL IV ONE (11:19)
--- NOTE | 2025-03-04 11:23 | DVH ---
XY CHEST PORTABLE, HISTORY: sob COMPARISON: None None TECHNICAL DATA: 1 view of the chest was obtained. FINDINGS: Lines and tubes: None Cardiomediastinal silhouette: normal Pulmonary vasculature: normal Lung expansion: normal Lung airspace: normal Lung interstitium: normal Pleura: normal Pneumothorax: no Bones: Unremarkable Other: no IMPRESSION: No acute intrathoracic abnormality.
[2025-03-04 11:30] LABS: Basophils # (auto) 0 10 ^3/uL (0-0.2); Basophils % (auto) 0.9 % (0.0-2.0); Eosinophils # (auto) 0.1 10 ^3/uL (0-0.8); Eosinophils % (auto) 2.7 % (0.0-7.0); Hematocrit 33.9 % (41.0-53.0); Lymphocytes # (auto) 1.3 10 ^3/uL (0.4-5.4); Lymphocytes % (auto) 26.8 % (10.0-50.0); Mean Corpuscular Hemoglobin 29.7 pg (28.0-32.0); Mean Corpuscular Hgb Conc. 32.6 g/dL (32.0-36.0); Monocytes # (auto) 0.4 10 ^3/uL (0-1.3); Neutrophils % (auto) 61.6 % (37.0-80.0); Nucleated Red Blood Cells % 0.4 %; Platelet Count (auto) 148 10^3/uL (140-450); Red Blood Cells 3.72 10^6/uL (4.5-5.90); White Blood Cell 4.9 10^3/uL (4.4-10.8)
[2025-03-04 11:47] LABS: Anion Gap 11 (5-15); Carbon Dioxide 21 mmol/L (20-31); Potassium 4.2 mmol/L (3.5-5.1); Sodium 141 mmol/L (136-145)
[2025-03-04 11:48] LABS: Calcium 9.5 mg/dL (8.7-10.4)
[2025-03-04 11:49] LABS: Chloride 109 mmol/L (98-107)
[2025-03-04 11:53] LABS: BUN/Creatinine Ratio 15.8 (10.0-20.0); Blood Urea Nitrogen 21 mg/dL (9-23); Glucose 98 mg/dL (74-106)
[2025-03-04 13:26] LABS: Amphetamine Screen, Urine Neg (NEGATIVE); Barbiturate Scree,Urine Neg (NEGATIVE); Benzodiazephine Screen, Urine Neg (NEGATIVE); Cannabinoid Screen, Urine Neg (NEGATIVE); Cocaine Screen, Urine Neg (NEGATIVE); Opiate Scree,Urine Neg (NEGATIVE); Phencyclidine Screen, Urine Neg (NEGATIVE)
[2025-03-04 15:30] VITALS: PULSE 111; RESP 25; O2SAT 96
[2025-03-04] MEDS ORDERED: ONDANSETRON HCL 4 MG/2 ML VIAL IV PRN (16:15)
[2025-03-04] MEDS ORDERED: NITROGLYCERIN 0.4 MG SL TAB SL PRN (16:15)
[2025-03-04] MEDS ORDERED: MORPHINE SULFATE INJ 2 MG/ml SYRG IV PRN (16:15)
--- NOTE | 2025-03-04 16:31 | DVH ---
EXAM: US Duplex Bilateral Lower Extremities Veins CLINICAL INDICATION: sob/leg edema TECHNIQUE: Real-time duplex ultrasound scan of the bilateral lower extremity veins integrating B-mod e two-dimensional vascular structure, Doppler spectral analysis, color flow Doppler imaging and compr ession. COMPARISON: US BILAT LOWER DVT on DOS: 05/21/24 FINDINGS: RIGHT DEEP VEINS: Unremarkable. No DVT in the right common femoral, femoral, proximal deep femoral or popliteal veins. The veins demonstrate normal color flow, are normally compressible, with normal phasic flow and/or augmentation response. RIGHT SUPERFICIAL VEINS: Unremarkable. No thrombus in the visualized right great saphenous vein. LEFT DEEP VEINS: Unremarkable. No DVT in the left common femoral, femoral, proximal deep femoral o r popliteal veins. The veins demonstrate normal color flow, are normally compressible, with normal p hasic flow and/or augmentation response. LEFT SUPERFICIAL VEINS: Unremarkable. No thrombus in the visualized left great saphenous vein. SOFT TISSUES: No acute findings. No popliteal cyst. OTHER FINDINGS: . IMPRESSION: No DVT.
--- NOTE | 2025-03-04 16:33 | DVHHP2 ---
History of Present Illness Reason for Visit: Shortness of breath and not taking his Lasix more than a month History of Present Illness 39 y/o M, BIBA, with PMHx of CHF, Lung Lesion, and porphyria presents to the ED for CC of shortness of breath. EMS reports, patient is coming from home where he complains of shortness of breath onset, today (03/04/25). Patient reports, shortness of breath to worsen while lying flat. Patient was previously admitted to [facility] on 05/21/24 for elevated BNP. Patient endorses, recently running out of his Lasix medication. Patient comments on using methamphetamines and marijuana. No other symptoms or modifying factors present at this time. Apparently he changed his primary care physicians and now went to see them to refill his Lasix medication. Has not been taking it for more than a month. In the ER is noted to have leg edema with the shortness for breath symptoms and tachycardia. His D-dimer is elevated. Therefore he is being admitted to the hospital for further evaluation and management. Past Medical History Chronic congestive heart failure with diastolic dysfunction, congestive cardiomyopathy, methamphetamines as illicit drug use disorder, anxiety disorder Past Surgical History: None Family History: Hypertension Smoke: No ALCOHOL: occassional Lives: with Family Review of Systems Review of Systems Denies any recent travel. No fevers chills or sweats. no headache or dizziness. Other review of systems reviewed normal. Allergies: Coded Allergies: [place] (Verified Allergy, Unknown, 05/27/24) Medications Current Medications Medications Dose Ordered Sig/Devorah Route Start Time Stop Time Status Last Admin Dose Admin Enoxaparin Sodium 80 mg Q12HR SC 03/04/25 22:00 Nitroglycerin 0.4 mg Q5MINP PRN SL 03/04/25 16:15 UNV Morphine Sulfate 2 mg Q30M PRN IV 03/04/25 16:15 UNV Furosemide 40 mg BIDD IV 03/04/25 18:00 UNV Potassium Chloride 10 meq BID PO 03/04/25 22:00 UNV Ondansetron HCl 4 mg Q4HPRN PRN IV 03/04/25 16:15 UNV Acetaminophen 650 mg Q4HP PRN PO 03/04/25 16:15 UNV Acetaminophen/ Hydrocodone Bitart 1 tab Q6HPRN PRN PO 03/04/25 16:15 UNV Carvedilol 3.125 mg Q12HR PO 03/04/25 22:00 UNV Hydralazine HCl 10 mg Q6HR IV 03/04/25 18:00 UNV Aspirin 81 mg DAILY PO 03/05/25 10:00 UNV Exam Vital Signs Vital Signs Date Time Temp Pulse Resp B/P (MAP) Pulse Ox O2 Delivery O2 Flow Rate FiO2 03/04/25 15:30 111 25 96 Room Air* 0 21 03/04/25 14:00 158/127 (137) 03/04/25 11:00 97.8 97.8 Exam Comfortable without any significant cardiopulmonary distress at present. HEENT neck supple no JVD. Pupils equal round react to light. Heart regular rate and rhythm tachycardia S1 and S2. Lungs fair air movement with rhonchi/degraded breath sounds in the bases. Abdomen soft nontender nondistended positive bowel sounds. Extremities plus one edema positive distal pedal pulses. Labs/Xrays Labs Test 03/04/25 14:22 03/04/25 13:03 03/04/25 11:14 Range/Units Troponin I High Sensitivity 24 </=54 ng/L Urine Opiates Screen Neg NEGATIVE Urine Fentanyl Screen Neg NEGATIVE Urine Barbiturates Screen Neg NEGATIVE Urine Phencyclidine Screen Neg NEGATIVE Urine Amphetamines Screen Neg NEGATIVE Urine Benzodiazepines Screen Neg NEGATIVE Urine Cocaine Screen Neg NEGATIVE Urine Cannabinoids Screen Neg NEGATIVE White Blood Count 4.9 4.4-10.8 10^3/uL Red Blood Count 3.72 L 4.5-5.90 10^6/uL Hemoglobin 11.0 L 13.5-17.5 g/dL Hematocrit 33.9 L 41.0-53.0 % Mean Corpuscular Volume 91.0 80.0-100.0 fL Mean Corpuscular Hemoglobin 29.7 28.0-32.0 pg Mean Corpuscular Hemoglobin Concent 32.6 32.0-36.0 g/dL Red Cell Distribution Width 15.0 H 11.8-14.3 % Platelet Count 148 140-450 10^3/uL Mean Platelet Volume 9.4 6.9-10.8 fL Neutrophils (%) (Auto) 61.6 37.0-80.0 % Lymphocytes (%) (Auto) 26.8 10.0-50.0 % Monocytes (%) (Auto) 8.0 0.0-12.0 % Eosinophils (%) (Auto) 2.7 0.0-7.0 % Basophils (%) (Auto) 0.9 0.0-2.0 % Neutrophils # (Auto) 3.0 1.6-8.6 10 ^3/uL Lymphocytes # (Auto) 1.3 0.4-5.4 10 ^3/uL Monocytes # (Auto) 0.4 0-1.3 10 ^3/uL Eosinophils # (Auto) 0.1 0-0.8 10 ^3/uL Basophils # (Auto) 0 0-0.2 10 ^3/uL Nucleated Red Blood Cells 0.4 % D-Dimer, Quantitative 4.16 H 0.0-0.49 mg/L FEU Sodium Level 141 136-145 mmol/L Potassium Level 4.2 3.5-5.1 mmol/L Chloride Level 109 H 98-107 mmol/L Carbon Dioxide Level 21 20-31 mmol/L Anion Gap 11 5-15 Blood Urea Nitrogen 21 9-23 mg/dL Creatinine 1.33 H 0.700-1.30 mg/dL Glomerular Filtration Rate Calc 71 >90 mL/min BUN/Creatinine Ratio 15.8 10.0-20.0 Serum Glucose 98 74-106 mg/dL Calcium Level 9.5 8.7-10.4 mg/dL B-Type Natriuretic Peptide 1307.37 0-100 pg/mL Assessment/Plan Assessment/Plan Admitted telemetry floor. Treat his CHF exacerbation. 2D echocardiogram. IV diuresis. Cardiac evaluation. We will order V/Q scan for elevated D-dimer. Otherwise supportive care and treatment. Further clinical management per clini tonny course and pending evaluations and studies. Discussed with the ER physician regarding care plan Plan discussed with: Other My Orders Orders - MIRNA STILL MD Procedure Category Date Status Time Admit ADMIT 03/04/25 Transmitted 16:02 * Cardiology Consult CONS 03/04/25 Transmitted 16:02 Cardiac DIET 03/04/25 Transmitted Diet-2gna,Lofat,Lochol Dinner Echo 2d Mode Cardiac US 03/04/25 Logged DOP 16:02 Troponin-I Hs LAB 03/04/25 Logged 16:02 Nm Vq Scan NM 03/04/25 Logged 16:02 Nitroglycerin PHA 03/04/25 Logged Sublingual (Ntrostat 16:15 Morphine Sulfate PHA 03/04/25 Logged Injection 16:15 Stat Ekg For Chest [facility] 03/04/25 In Process Pain 16:02 Notify Of Changes [facility] 03/04/25 In Process From Base 16:02 Computer Engineering Professor For [facility] 03/04/25 In Process 24 Hours 16:02 Emergency Dysrhythmia [facility] 03/04/25 In Process Protocol 16:02 Rhythm Strips Once [facility] 03/04/25 In Process Every Shift 16:02 Oxygen By Nasal RT 03/04/25 Transmitted Cannula 16:02 Troponin-I Hs LAB 03/04/25 Logged 19:02 Bilat Lower Dvt US 03/04/25 Taken 16:02 Furosemide Injection PHA 03/04/25 Logged (Lasix Injection) 18:00 Potassium Er Tablet PHA 03/04/25 Logged (Klor-Con Tablet) 22:00 Ondansetron Hcl PHA 03/04/25 Logged (Zofran) 16:15 Acetaminophen Tablet PHA 03/04/25 Logged (Tylenol Tablet) 16:15 Hydrocodone-Acet PHA 03/04/25 Logged 5/325mg Tab ([place] 16:15 Carvedilol Tablet PHA 03/04/25 Logged (Coreg Tablet) 22:00 Provide Chf D/C ORDERS 03/04/25 Transmitted Instructions 16:04 Hydralazine Injection [facility] 03/04/25 Logged (Apresoline Inject 18:00 Basic Metabolic Panel LAB 03/05/25 Verified 04:00 Complete Blood Count LAB 03/05/25 Verified 04:00 PTPTT LAB 03/05/25 Verified 04:00 Aspirin Enteric PHA 03/05/25 Logged Coated Tablet 10:00 Problem List: (1) Tachycardia (2) Elevated d-dimer (3) Leg edema (4) Generalized weakness (5) Elevated brain natriuretic peptide (BNP) level MIRNA STILL MD March 04, 2025 16:32
--- NOTE | 2025-03-04 17:44 | DVHINCON2 ---
Date Seen: March 04, 2025 Referring Physician JOEL Nice Reason for Consultation Shortness of breaths History of Present Illness This is a 39-year-old male with past medical history of CHF (methamphetamine induced, EF 20%), came to the hospital due to shortness of breath since 1 week. Per patient, he has shortness of breaths at baseline (functional class 2) but has worsened since 1 week which prompted visits. He also reports cough, nausea, vomiting, orthopnea, PND, and mild abdominal pain. He denies fever, chest pain, palpitation, or any recent sick contact. PMHx: Methamphetamine induced cardiomyopathy PSHx: Not significant Family history: Noncontributory Social history: Current methamphetamine user, ex-smoker, ex marijuana user, denies current any other drug use. Home medication: Carvedilol 6.25 mg b.i.d., empagliflozin 10 mg, Lasix 40 mg daily, Entresto (per patient he ran out of medicine since 6 months, he is not taking any medicine) Allergic history: [place] Patient seen and examined at the bedside. Patient is still complained of shortness of breaths. Past Medical History Per H&P Past Surgical History Per H&P Family History: FH: breast cancer G8 MOTHER Family History Per H&P Social History Per H&P Allergies: Coded Allergies: [place] (Verified Allergy, Unknown, 05/27/24) Home Meds Active Scripts Doxycycline Monohydrate (Doxycycline Monohydrate) 100 Mg Tab, 100 MG PO BID, #10 TAB Prov:MIRNA STILL MD 05/30/24 Carvedilol (Carvedilol) 6.25 Mg Tab, 1 TAB PO BID, #60 TAB 1 Refill Prov:MIRNA STILL MD 05/30/24 Furosemide (Furosemide) 40 Mg Tab, 1 TAB PO DAILY, #90 TAB Prov:MIRNA STILL MD 05/30/24 Sacubitril-Valsartan (Entresto 24-26 mg) 1 Tab Tab, 1 TAB PO BID, #90 TAB 1 Refill Prov:MIRNA STILL MD 05/30/24 Empagliflozin (Jardiance) 10 Mg Tab, 10 MG PO DAILY, #60 TAB Prov:MIRNA STILL MD 05/30/24 Reported Medications Sumatriptan Succinate (Sumatriptan Succinate) 100 Mg Tab, 100 MG PO PRN for FOR HEADACHE, TAB 05/21/24 Home Meds Per H&P Current Medications Current Medications Medications (Trade) Dose Ordered Sig/Devorah Route PRN Reason Start Time Stop Time Status Last Admin Enoxaparin Sodium (Lovenox) 80 mg Q12HR SC 03/04/25 22:00 Nitroglycerin (Ntrostat Sublingual) 0.4 mg Q5MINP PRN SL FOR CHEST PAIN 03/04/25 16:15 Morphine Sulfate 2 mg Q30M PRN IV FOR CHEST PAIN 03/04/25 16:15 Furosemide (Lasix Injection) 40 mg BIDD IV 03/04/25 18:00 Potassium Chloride (Klor-Con Tablet) 10 meq BID PO 03/04/25 22:00 Ondansetron HCl (Zofran) 4 mg Q4HPRN PRN IV NAUSEA / VOMITING 03/04/25 16:15 Acetaminophen (Tylenol Tablet) 650 mg Q4HP PRN PO MODERATE PAIN (4-6 PAIN SCALE) 03/04/25 16:15 Acetaminophen/ Hydrocodone Bitart ([place] 5/325MG Tab) 1 tab Q6HPRN PRN PO SEVERE PAIN (7-10 PAIN SCALE) 03/04/25 16:15 Carvedilol (Coreg Tablet) 3.125 mg Q12HR PO 03/04/25 22:00 Hydralazine HCl (Apresoline Injection) 10 mg Q6HR IV 03/04/25 18:00 Aspirin (Ecotrin Enteric Coated Tablet) 81 mg DAILY PO 03/05/25 10:00 Review of Systems Per H&P Vital Signs Vital Signs Date Time Temp Pulse Resp B/P (MAP) Pulse Ox O2 Delivery O2 Flow Rate FiO2 03/04/25 15:30 111 25 96 Room Air* 0 21 03/04/25 14:00 158/127 (137) 03/04/25 11:00 97.8 97.8 Physical Exam General Appearance: Alert, Oriented X3, Cooperative, No acute distress HEENT: Atraumatic, PERRLA, EOMI, Mucous membrane moist/pink Respiratory: Bilateral lower zone mild crackles Cardiovascular: Regular rate, Normal S1, Normal S2, No murmurs, no chest wall tenderness Abdominal: Normal bowel sounds, Soft, No tenderness, No hepatospenomegaly, No masses Extremities: Bilateral lower limb grade 2 pitting pedal edema Skin: No rashes, No breakdown, No significant lesion Neuro: Normal gait, Normal speech, Strength at 5/5 X4 ext, Normal tone, Sensation intact, Cranial nerves 3-12 NL, Reflexes 2+ Psych/Mental Status: Mental status NL, Mood NL Labs/Diagnostic Data Labs Test 03/04/25 14:22 03/04/25 13:03 03/04/25 11:14 Range/Units Troponin I High Sensitivity 24 </=54 ng/L Urine Opiates Screen Neg NEGATIVE Urine Fentanyl Screen Neg NEGATIVE Urine Barbiturates Screen Neg NEGATIVE Urine Phencyclidine Screen Neg NEGATIVE Urine Amphetamines Screen Neg NEGATIVE Urine Benzodiazepines Screen Neg NEGATIVE Urine Cocaine Screen Neg NEGATIVE Urine Cannabinoids Screen Neg NEGATIVE White Blood Count 4.9 4.4-10.8 10^3/uL Red Blood Count 3.72 L 4.5-5.90 10^6/uL Hemoglobin 11.0 L 13.5-17.5 g/dL Hematocrit 33.9 L 41.0-53.0 % Mean Corpuscular Volume 91.0 80.0-100.0 fL Mean Corpuscular Hemoglobin 29.7 28.0-32.0 pg Mean Corpuscular Hemoglobin Concent 32.6 32.0-36.0 g/dL Red Cell Distribution Width 15.0 H 11.8-14.3 % Platelet Count 148 140-450 10^3/uL Mean Platelet Volume 9.4 6.9-10.8 fL Neutrophils (%) (Auto) 61.6 37.0-80.0 % Lymphocytes (%) (Auto) 26.8 10.0-50.0 % Monocytes (%) (Auto) 8.0 0.0-12.0 % Eosinophils (%) (Auto) 2.7 0.0-7.0 % Basophils (%) (Auto) 0.9 0.0-2.0 % Neutrophils # (Auto) 3.0 1.6-8.6 10 ^3/uL Lymphocytes # (Auto) 1.3 0.4-5.4 10 ^3/uL Monocytes # (Auto) 0.4 0-1.3 10 ^3/uL Eosinophils # (Auto) 0.1 0-0.8 10 ^3/uL Basophils # (Auto) 0 0-0.2 10 ^3/uL Nucleated Red Blood Cells 0.4 % D-Dimer, Quantitative 4.16 H 0.0-0.49 mg/L FEU Sodium Level 141 136-145 mmol/L Potassium Level 4.2 3.5-5.1 mmol/L Chloride Level 109 H 98-107 mmol/L Carbon Dioxide Level 21 20-31 mmol/L Anion Gap 11 5-15 Blood Urea Nitrogen 21 9-23 mg/dL Creatinine 1.33 H 0.700-1.30 mg/dL Glomerular Filtration Rate Calc 71 >90 mL/min BUN/Creatinine Ratio 15.8 10.0-20.0 Serum Glucose 98 74-106 mg/dL Calcium Level 9.5 8.7-10.4 mg/dL B-Type Natriuretic Peptide 1307.37 0-100 pg/mL Assessment Acute on chronic systolic heart failure Systolic heart failure, methamphetamine induced Hypertensive emergency leading to heart failure Severe tricuspid regurgitation Methamphetamine use disorder Marijuana use disorder Medicine nonadherence Porphyria Raised D-dimer * EKGs shows, sinus tachycardia with no significant ST or T-wave changes * Trop I is normal, BNP is raised at 920 * Echo, from June 05, 2024 shows EF 20% with moderate to severe TR Plan/Recommendation (Case discussed with Dr. Ramirez) * IV diuretics, Lasix 40 mg b.i.d. * Started carvedilol 6.25 mg b.i.d., Jardiance 10 mg, spironolactone 25 mg, and Entresto * Check echocardiogram * We will follow up with the patient * Rest of plan, per primary team Thank you for allowing us to participate in this patient's care. Please call if you have any questions or concerns. Plan discussed with: Patient, Other (RN) NYHA Physical activity limitations: NA Date of Service: March 04, 2025 Billing Provider: TROY MARIE Cardiology Common Codes: [id number] INP/OBS CARE (High) TROY MARIE March 04, 2025 17:44
[2025-03-04] MEDS ORDERED: CARVEDILOL 3.125 MG TAB PO SCH ×2 (17:45→22:00)
[2025-03-04] MEDS: hydrALAZINE HCL 20 MG/ML VL IV SCH (18:21)
[2025-03-04] MEDS: FUROSEMIDE 40 MG/4 ML VIAL IV SCH (18:21)
[2025-03-04] MEDS: CARVEDILOL 3.125 MG TAB PO SCH (18:22)
[2025-03-04] MEDS: SPIRONOLACTONE 25 MG TAB PO ONE (18:22)
[2025-03-04 20:05] VITALS: PULSE 108; RESP 16; O2SAT 98
[2025-03-04 21:45] VITALS: BP 142/105; PULSE 101; RESP 17; TEMP 97.7; O2SAT 98
[2025-03-04 21:50] VITALS: BP 142/105; PULSE 101; RESP 17; TEMP 97.7; O2SAT 98
[2025-03-04] MEDS: SACUBITRIL-VALSARTAN 24mg/26mg TAB PO SCH (22:23)
[2025-03-04] MEDS: POTASSIUM CHL 20 Meq TABLET PO SCH (22:23)
[2025-03-04] MEDS: ENOXAPARIN SOD 80 MG/0.8ML SYRINGE SC SCH (22:24)
[2025-03-05] VITALS (8 sets, daily range): BP systolic 106–138; BP diastolic 73–104; PULSE 79–102; RESP 15–19; TEMP 97.5–98.3; O2SAT 95–99
[2025-03-05] MEDS: ACETAMINOPHEN 325 MG TAB PO PRN (06:05)
[2025-03-05 07:30] LABS: Basophils # (auto) 0.1 10 ^3/uL (0-0.2); Basophils % (auto) 1.1 % (0.0-2.0); Chloride 107 mmol/L (98-107); Eosinophils # (auto) 0.4 10 ^3/uL (0-0.8); Hematocrit 50.3 % (41.0-53.0); Hemoglobin 16.7 g/dL (13.5-17.5); Lymphocytes # (auto) 1.6 10 ^3/uL (0.4-5.4); Mean Corpuscular Hemoglobin 29.4 pg (28.0-32.0); Mean Corpuscular Hgb Conc. 33.1 g/dL (32.0-36.0); Mean Corpuscular Volume 88.6 fL (80.0-100.0); Monocytes # (auto) 0.6 10 ^3/uL (0-1.3); Monocytes % (auto) 8.5 % (0.0-12.0); Neutrophils # (auto) 3.9 10 ^3/uL (1.6-8.6); Neutrophils % (auto) 59.4 % (37.0-80.0); Nucleated Red Blood Cells % 0.4 %; Platelet Count (auto) 195 10^3/uL (140-450); Red Blood Cells 5.68 10^6/uL (4.5-5.90); Sodium 143 mmol/L (136-145); White Blood Cell 6.6 10^3/uL (4.4-10.8)
[2025-03-05 07:31] LABS: Anion Gap 8 (5-15); Calcium 9.6 mg/dL (8.7-10.4); Carbon Dioxide 28 mmol/L (20-31)
[2025-03-05 07:36] LABS: BUN/Creatinine Ratio 15.6 (10.0-20.0); Blood Urea Nitrogen 19 mg/dL (9-23); Glucose 98 mg/dL (74-106)
[2025-03-05 07:49] LABS: INR 1.08 (0.9-1.15); Partial Thromboplastin Time 28.8 SEC (24.5-34.5); Prothrombin Time 11.4 sec (9.3-11.8)
[2025-03-05] MEDS: HYDROcodone-ACET 5/325MG TAB PO PRN (08:16)
[2025-03-05] MEDS: ASPirin-EC 81 mg tab PO SCH (09:29)
[2025-03-05] MEDS: SPIRONOLACTONE 25 MG TAB PO SCH (09:29)
[2025-03-05] MEDS: EMPAGLIFLOZIN 10 MG TAB PO SCH (09:30)
--- NOTE | 2025-03-05 11:28 | DVHSR ---
APPROVED REPORT EXAM: Two-dimensional and M-mode echocardiogram with Doppler and color Doppler. Blood Pressure: 158/127 mmHg INDICATION Heart failure RISK FACTORS Height: 6'1", Weight: 180 DIMENSIONS LVDd6.0 (3.8-5.7cm)LA (2D)4.1 (1.9-4.0cm)Aortic Root3.8 (2.0-3.7cm) LVDs5.7 (2.5-4.0cm)LA (MM) (1.9-4.0cm)Aortic Cusp Exc1.6 (1.5-2.0cm) EF (%) 15.0 (55-70%)Rt. Atrium5.1 (1.9-4.0cm)Asc. Aorta cm IVSd1.1 (0.7-1.1cm)RV (D)4.6 (1.8-2.4cm) PWd1.0 (0.7-1.1cm) Mitral Valve MitralMitral Stenosis E wave1.05m/sMV Mean GR.mmHg A wave0.28m/sMV Peak GR.mmHg E/A ratio3.82D MVAcm2 DECEL [id number] 1/2 Tim[place] Aortic Valve Aortic ValveAortic Stenosis V10.39m/Lauro Mean GR.2mmHg V20.99m/Lauro Peak GR.4mmHg LVOT Diameter2.1 (1.8-2.4cm)Doppler AVA1.36cm2 Pulmonic Valve V20.55m/s Tricuspid Valve TR Velocity3.54m/s [id number] Conclusion lvef 10-15% by visual estimate severe global LV dysfunction, dilated LV RV dysfunction biatrial enlargement moderate mitral regurg moderate to severe tricuspid regurg
--- NOTE | 2025-03-05 12:04 | DVHPN2 ---
Progress Note - Dictate Date Seen: March 05, 2025 Medical Necessity Reason Pt with a Central, PICC or Fol: No Subjective Feeling better. Evaluated by sergeant of officers and resumed on multiple cardiac medications for cardiomyopathy and CHF. Patient counseled and educated regarding compliance with his medications and fluid restriction. vital signs Vital Sign Date Time Temp Pulse Resp B/P (MAP) Pulse Ox O2 Delivery O2 Flow Rate FiO2 03/05/25 09:00 97.6 94 17 138/104 (115) 99 97.6 03/05/25 08:00 Room Air* 0 21 Total Intake and Output 03/04/25 03/04/25 03/05/25 15:00 23:00 07:00 Intake Total 0 ml Output Total 1500 ml 3000 ml Balance -1500 ml -3000 ml 0 ml medications Current Medications Medications Dose Ordered Sig/Devorah Route Start Time Stop Time Status Last Admin Dose Admin Nitroglycerin 0.4 mg Q5MINP PRN SL 03/04/25 16:15 Morphine Sulfate 2 mg Q30M PRN IV 03/04/25 16:15 Furosemide 40 mg BIDD IV 03/04/25 18:00 03/05/25 05:05 40 MG Ondansetron HCl 4 mg Q4HPRN PRN IV 03/04/25 16:15 Acetaminophen 650 mg Q4HP PRN PO 03/04/25 16:15 03/05/25 06:05 650 MG Acetaminophen/ Hydrocodone Bitart 1 tab Q6HPRN PRN PO 03/04/25 16:15 03/05/25 08:16 1 TAB Hydralazine HCl 10 mg Q6HR IV 03/04/25 18:00 03/05/25 06:04 10 MG Aspirin 81 mg DAILY PO 03/05/25 10:00 03/05/25 09:29 81 MG Empaglifozin 10 mg DAILY PO 03/05/25 10:00 03/05/25 09:30 10 MG Spironolactone 25 mg DAILY PO 03/05/25 10:00 03/05/25 09:29 25 MG Sacubitril/ Valsartan 1 tab BID PO 03/04/25 22:00 03/04/25 22:23 1 TAB Carvedilol 6.25 mg BIDWM PO 03/04/25 18:00 03/05/25 08:15 6.25 MG Enoxaparin Sodium 40 mg DAILY SC 03/06/25 10:00 UNV objective Alert awake oriented x3. HEENT neck supple no JVD. Heart regular rate and rhythm S1-S2. Lungs fair air movement without rales wheezes. Abdomen soft positive bowel sounds. Extremities significantly improved edema. laboratory and microbiology Laboratory Tests 03/05/25 06:37 Test 03/05/25 06:37 Range/Units Serum Glucose 98 74-106 mg/dL Assessment/Plan Continue current diuresis and cardiac medications as he is on. Monitor him overnight and if he remains stable discharge home tomorrow with a 30 day supply of his medications. Patient has a follow up appointment with his primary care physician on April 20 according to him. Problems(with codes): (1) Elevated brain natriuretic peptide (BNP) level (2) Generalized weakness (3) Tachycardia (4) Dyspnea (5) Marijuana use (6) Amphetamine abuse Plan discussed with: Patient MIRNA STILL MD March 05, 2025 12:04
--- NOTE | 2025-03-05 14:15 | DVH ---
NUCLEAR MEDICINE VENTILATION/PERFUSION LUNG SCAN. INDICATION: PULMONARY EMBOLISM COMPARISON: None TECHNIQUE: Following intravenous demonstration of 4.3 millicuries of technetium 99m MAA, and inhala tion of 5.2 mCi of Xe 133 scintigrams were obtained in multiple projections of the lungs. FINDINGS: There is normal uptake of radionuclide on both the ventilation and perfusion portions of the examinat ion. No mismatched perfusion defects are demonstrated. Uptake is normally homogeneous. IMPRESSION: Low probability for PE.
--- NOTE | 2025-03-05 15:19 | DVHPNRES ---
Progress Note Date Seen: March 05, 2025 Resident Creating Document: TROY MARIE RESDIENT Medical Necessity Reason Pt with a Central, PICC or Fol: No Subjective Review of Systems When the bedside. Patient is feeling better since admission. And does not have any active complaint including chest pain and shortness of breathe. Patient reports: No new complaints, Feels better Changes from previous H/P or p: Changes Objective vital signs Vital Sign Date Time Temp Pulse Resp B/P (MAP) Pulse Ox O2 Delivery O2 Flow Rate FiO2 03/05/25 14:40 139/108 03/05/25 13:00 97.5 87 17 97 97.5 03/05/25 08:00 Room Air* 0 21 Total Intake and Output 03/04/25 03/04/25 03/05/25 15:00 23:00 07:00 Intake Total 0 ml Output Total 1500 ml 3000 ml Balance -1500 ml -3000 ml 0 ml medications Current Medications Medications Dose Ordered Sig/Devorah Route Start Time Stop Time Status Last Admin Dose Admin Nitroglycerin 0.4 mg Q5MINP PRN SL 03/04/25 16:15 Morphine Sulfate 2 mg Q30M PRN IV 03/04/25 16:15 Furosemide 40 mg BIDD IV 03/04/25 18:00 03/05/25 05:05 40 MG Ondansetron HCl 4 mg Q4HPRN PRN IV 03/04/25 16:15 Acetaminophen 650 mg Q4HP PRN PO 03/04/25 16:15 03/05/25 06:05 650 MG Acetaminophen/ Hydrocodone Bitart 1 tab Q6HPRN PRN PO 03/04/25 16:15 03/05/25 08:16 1 TAB Hydralazine HCl 10 mg Q6HR IV 03/04/25 18:00 03/05/25 14:40 10 MG Aspirin 81 mg DAILY PO 03/05/25 10:00 03/05/25 09:29 81 MG Empaglifozin 10 mg DAILY PO 03/05/25 10:00 03/05/25 09:30 10 MG Spironolactone 25 mg DAILY PO 03/05/25 10:00 03/05/25 09:29 25 MG Sacubitril/ Valsartan 1 tab BID PO 03/04/25 22:00 03/04/25 22:23 1 TAB Carvedilol 6.25 mg BIDWM PO 03/04/25 18:00 03/05/25 08:15 6.25 MG Enoxaparin Sodium 40 mg DAILY SC 03/06/25 10:00 Examination General Appearance: Alert, Oriented X3, Cooperative, No acute distress HEENT: Atraumatic, PERRLA, EOMI, Mucous membrane moist/pink Respiratory: Clear to auscultation, Normal air movement Cardiovascular: Regular rate, Normal S1, Normal S2, No murmurs, no chest wall tenderness Abdominal: Normal bowel sounds, Soft, No tenderness, No hepatospenomegaly, No masses Extremities: No clubbing, No cyanosis, No edema, Normal pulses, No tenderness/swelling Skin: No rashes, No breakdown, No significant lesion Neuro: Normal gait, Normal speech, Strength at 5/5 X4 ext, Normal tone, Sensation intact, Cranial nerves 3-12 NL, Reflexes 2+ Psych/Mental Status: Mental status NL, Mood NL laboratory and microbiology Laboratory Tests 03/05/25 06:37 Test 03/05/25 06:37 Range/Units Serum Glucose 98 74-106 mg/dL Labs and/or images reviewed: Labs reviewed by me, Image(s) reviewed by me Problem List/Assessment/Plan Problem List/Assessment/Plan Acute on chronic systolic heart failure Systolic heart failure, methamphetamine induced Hypertensive emergency leading to heart failure Severe tricuspid regurgitation Methamphetamine use disorder Marijuana use disorder Medicine nonadherence Porphyria Raised D-dimer * EKGs shows, sinus tachycardia with no significant ST or T-wave changes * Trop I is normal, BNP is raised at 920 * Echo, shows LVEF 10-15% by visual estimate, severe global LV dysfunction, dilated LV Plan/Recommendation (Case discussed with Dr. Betts) * IV diuretics, Lasix 40 mg b.i.d. * Discharge plan: Continue carvedilol 6.25 mg b.i.d., Jardiance 10 mg, spironolactone 25 mg, and Entresto b.i.d. in the serum * We sign of the patient, follow up with Cardiology on outpatient Thank you for allowing us to participate in this patient's care. Please call if you have any questions or concerns. Plan discussed with: Patient, Other (RN) My Orders My Orders Orders - TROY MARIE RESDIENT Procedure Category Date Status Time Empagliflozin PHA 03/05/25 In Process (Jardiance) 10:00 Spironolactone PHA 03/05/25 In Process (Aldactone) 10:00 Sacubitril-Valsartan PHA 03/04/25 In Process (Entresto 24-26 Mg 22:00 Carvedilol Tablet PHA 03/04/25 In Process (Coreg Tablet) 18:00 Visit Coding Cardiology RES Date of Service: March 05, 2025 Billing Provider: RUSSELL BETTS MD Cardiology Common Codes: [id number] HOSP CARE(High TROY MARIE RESDIENT March 05, 2025 15:19
[2025-03-06] VITALS (7 sets, daily range): BP systolic 104–128; BP diastolic 76–94; PULSE 84–94; RESP 16–18; TEMP 36.4; O2SAT 96–99
[2025-03-06 07:16] LABS: Anion Gap 9 (5-15); Carbon Dioxide 27 mmol/L (20-31); Potassium 3.6 mmol/L (3.5-5.1); Sodium 143 mmol/L (136-145)
[2025-03-06 07:22] LABS: BUN/Creatinine Ratio 14.1 (10.0-20.0); Blood Urea Nitrogen 19 mg/dL (9-23); Glucose 85 mg/dL (74-106)
[2025-03-06 07:24] LABS: Calcium 8.5 mg/dL (8.7-10.4); Chloride 107 mmol/L (98-107)
[2025-03-06] MEDS: ENOXAPARIN SOD 40 MG/0.4 ML SYRINGE SC SCH (10:54)
[2025-03-06] MEDS ORDERED: METO25TA5 PO (15:33)
[2025-03-06] MEDS ORDERED: FURO40TA4 PO (15:33)
[2025-03-06] MEDS ORDERED: SACU1TAB PO (15:33)
--- NOTE | 2025-03-06 15:37 | DVHDS2 ---
Discharge Summary Date of Admission March 04, 2025 at 16:02 Date of Discharge: March 06, 2025 Labs/Diagnostic Data: Laboratory Results Test 03/06/25 05:38 03/05/25 06:37 03/04/25 20:17 03/04/25 13:03 Sodium Level 143 mmol/L (136-145) Potassium Level 3.6 mmol/L (3.5-5.1) Chloride Level 107 mmol/L (98-107) Carbon Dioxide Level 27 mmol/L (20-31) Anion Gap 9 (5-15) Blood Urea Nitrogen 19 mg/dL (9-23) Creatinine 1.35 mg/dL (0.700-1.30) Glomerular Filtration Rate Calc 69 mL/min (>90) BUN/Creatinine Ratio 14.1 (10.0-20.0) Serum Glucose 85 mg/dL (74-106) Calcium Level 8.5 mg/dL (8.7-10.4) White Blood Count 6.6 10^3/uL (4.4-10.8) Red Blood Count 5.68 10^6/uL (4.5-5.90) Hemoglobin 16.7 g/dL (13.5-17.5) Hematocrit 50.3 % (41.0-53.0) Mean Corpuscular Volume 88.6 fL (80.0-100.0) Mean Corpuscular Hemoglobin 29.4 pg (28.0-32.0) Mean Corpuscular Hemoglobin Concent 33.1 g/dL (32.0-36.0) Red Cell Distribution Width 15.0 % (11.8-14.3) Platelet Count 195 10^3/uL (140-450) Mean Platelet Volume 9.8 fL (6.9-10.8) Neutrophils (%) (Auto) 59.4 % (37.0-80.0) Lymphocytes (%) (Auto) 25.0 % (10.0-50.0) Monocytes (%) (Auto) 8.5 % (0.0-12.0) Eosinophils (%) (Auto) 6.0 % (0.0-7.0) Basophils (%) (Auto) 1.1 % (0.0-2.0) Neutrophils # (Auto) 3.9 10 ^3/uL (1.6-8.6) Lymphocytes # (Auto) 1.6 10 ^3/uL (0.4-5.4) Monocytes # (Auto) 0.6 10 ^3/uL (0-1.3) Eosinophils # (Auto) 0.4 10 ^3/uL (0-0.8) Basophils # (Auto) 0.1 10 ^3/uL (0-0.2) Nucleated Red Blood Cells 0.4 % Prothrombin Time 11.4 sec (9.3-11.8) Prothrombin Time INR 1.08 (0.9-1.15) Activated Partial Thromboplast Time 28.8 SEC (24.5-34.5) Troponin I High Sensitivity 27 ng/L (</=54) Urine Opiates Screen Neg (NEGATIVE) Urine Fentanyl Screen Neg (NEGATIVE) Urine Barbiturates Screen Neg (NEGATIVE) Urine Phencyclidine Screen Neg (NEGATIVE) Urine Amphetamines Screen Neg (NEGATIVE) Urine Benzodiazepines Screen Neg (NEGATIVE) Urine Cocaine Screen Neg (NEGATIVE) Urine Cannabinoids Screen Neg (NEGATIVE) Test 03/04/25 11:14 D-Dimer, Quantitative 4.16 mg/L FEU (0.0-0.49) B-Type Natriuretic Peptide 1307.37 pg/mL (0-100) Other Laboratory Tests 03/06/25 05:38 03/05/25 06:37 Brief Hx & Hospital Course: 39 y/o M, BIBA, with PMHx of CHF, Lung Lesion, and porphyria presents to the ED for CC of shortness of breath. EMS reports, patient is coming from home where he complains of shortness of breath onset, today (03/04/25). Patient reports, shortness of breath to worsen while lying flat. Patient was previously admitted to [facility] on 05/21/24 for elevated BNP. Patient endorses, recently running out of his Lasix medication. Patient comments on using methamphetamines and marijuana. No other symptoms or modifying factors present at this time. Apparently he changed his primary care physicians and now went to see them to refill his Lasix medication. Has not been taking it for more than a month. In the ER is noted to have leg edema with the shortness for breath symptoms and tachycardia. His D-dimer is elevated. Therefore he is being admitted to the hospital for further evaluation and management. He is admitted and received IV diuretics and resumed back on his cardiac medications. Patient underwent once again CHF education and advised oral fluid restriction. More importantly he is advised to take the medications as prescribed and have a close follow up with the PCP or [facility] urgent care with the [facility] before he runs out of medications and so he can avoid further exacerbations. I told him regarding his poor ejection fraction on about 15% and cardiomyopathy and risks of sudden cardiac arrhythmia and sudden . Patient advised to follow up with his PCP and have referral to [facility] for close follow up and further monitoring of his cardiomyopathy. Patient advised to completely abstain from illicit drug use. Otherwise overall while in the hospital given patient is clinically stable not having any acute problems it is felt he could be safely discharged home. Patient verbalized understanding his hospital diagnosis, treatment he received, discharge medications, discharge instructions and agree with follow-up plan of care as mentioned. Operations or Procedures EXAM: Two-dimensional and M-mode echocardiogram with Doppler and color Doppler. Blood Pressure: 158/127 mmHg INDICATION Heart failure RISK FACTORS Height: 6'1", Weight: 180 DIMENSIONS LVDd 6.0 (3.8-5.7cm) LA (2D) 4.1 (1.9-4.0cm) Aortic Root 3.8 (2.0- 3.7cm) LVDs 5.7 (2.5-4.0cm) LA (MM) (1.9-4.0cm) Aortic Cusp Exc 1.6 (1.5- 2.0cm) EF (%) 15.0 (55-70%) Rt. Atrium 5.1 (1.9-4.0cm) Asc. Aorta cm IVSd 1.1 (0.7-1.1cm) RV (D) 4.6 (1.8-2.4cm) PWd 1.0 (0.7-1.1cm) Mitral Valve Mitral Mitral Stenosis E wave 1.05m/s MV Mean GR. mmHg A wave 0.28m/s MV Peak GR. mmHg E/A ratio 3.8 2D MVA cm2 DECEL Time 121ms PRESS 1/2 Time ms Aortic Valve Aortic Valve Aortic Stenosis V1 0.39m/s AO Mean GR. 2mmHg V2 0.99m/s AO Peak GR. 4mmHg LVOT Diameter 2.1 (1.8-2.4cm) Doppler FESTUS 1.36cm2 Pulmonic Valve V2 0.55m/s Tricuspid Valve TR Velocity 3.54m/s RVSP 65mmHg Conclusion lvef 10-15% by visual estimate severe global LV dysfunction, dilated LV RV dysfunction biatrial enlargement moderate mitral regurg moderate to severe tricuspid regurg SIGNED BY: RUSSELL BETTS MD SIGNED DATE/TIME: 03/05/25 1120 Condition at Discharge: Stable Final Diagnosis/Problems List CHF/cardiomyopathy Discharge Disposition: Home Discharge Instruct/Medications Diet: Consistent carbohydrate, Cardiac 2g Na,low cholest Diet comment: Restrict your oral fluid intake to 1200 mL per 24 hour Activity: No Restrictions, As Tolerated Follow Up/Referral: Primary care physician in one month and referral to [facility] for heart failure management Medications: As prescribed and per discharge med reconciliation list New Medications: Metoprolol Tartrate (Metoprolol Tartrate) 25 Mg Tab 1 TAB PO BID, #60 TAB 1 Refill Continued Medications: Furosemide (Furosemide) 40 Mg Tab 1 TAB PO DAILY, #90 TAB (This prescription has been renewed) Sacubitril-Valsartan (Entresto 24-26 mg) 1 Tab Tab 1 TAB PO BID, #90 TAB 1 Refill (This prescription has been renewed) Sumatriptan Succinate (Sumatriptan Succinate) 100 Mg Tab 100 MG PO PRN for FOR HEADACHE, TAB Discontinued Medications: Carvedilol (Carvedilol) 6.25 Mg Tab 1 TAB PO BID, #60 TAB 1 Refill Doxycycline Monohydrate (Doxycycline Monohydrate) 100 Mg Tab 100 MG PO BID, #10 TAB Empagliflozin (Jardiance) 10 Mg Tab 10 MG PO DAILY, #60 TAB Discharge Statement: "Patient was advised to return to the ER or call 911 if any headaches, dizziness, shortness of breath, chest pain, abdominal pain, bleeding, fevers, or worsening of medical condition. Patient was counseled about treatment plan, medications, possible side effects, patientverbalized understanding. All questions were answered to the best of my ability. This discharge took greater then 30 minutes in planning, reviewing documentation, counseling the patient, and discussing with other team members." ASSESSMENT ASSESSMENT Assessment CHF/cardiomyopathy MIRNA STILL MD March 06, 2025 15:37
== END 2025-03-06 17:05 | disposition home or self-care (01) | DRG 194 ==
LOC: EDBD 10:34 → ER 10:34 → OVERFLOW 16:02 → TELE-WESTW 21:45
PROVIDERS: ADMIT Hospitalist; ATTEND Hospitalist
DX: I11.0 Hypertensive heart disease with heart failure (principal); I42.9 Cardiomyopathy, unspecified; I50.23 Acute on chronic systolic (congestive) heart failure; I16.1 Hypertensive emergency; F10.90 Alcohol use, unspecified, uncomplicated; I07.1 Rheumatic tricuspid insufficiency; F12.90 Cannabis use, unspecified, uncomplicated; F15.90 Other stimulant use, unspecified, uncomplicated; Z91.148 Patient's other noncompliance with medication regimen for other reason; Z87.891 Personal history of nicotine dependence; Z82.49 Family history of ischemic heart disease and other diseases of the circulatory system; Z80.3 Family history of malignant neoplasm of breast; Z79.899 Other long term (current) drug therapy; Z79.84 Long term (current) use of oral hypoglycemic drugs; Z91.199 Patient's noncompliance with other medical treatment and regimen due to unspecified reason
CPT/HCPCS: 36415; 71045; 78582; 80048; 80307; 83880; 84484; 85025; 85379; 85610; 85730; 93005; 93306; 93970; 99291; G0378

== ENCOUNTER 2025-07-19 21:37 | Emergency (ER) | payer MEDICAID ==
[~2025-07-19] VITALS: Ht 185.4 cm; Wt 81.8 kg
[~2025-07-19 21:37] MED LIST changes: -CARV6.2551 PO; -DOX100T PO; -EMPA1TAB PO; +METO25TA5 PO
[2025-07-19 21:39] VITALS: BP 148/100; RESP 20; TEMP 98.2; O2SAT 98
[2025-07-19 21:41] VITALS: PULSE 90
[2025-07-19 22:12] LABS: Potassium 3.9 mmol/L (3.5-5.1); Sodium 145 mmol/L (136-145)
[2025-07-19 22:13] LABS: Anion Gap 11 (5-15); Carbon Dioxide 23 mmol/L (20-31)
[2025-07-19 22:14] LABS: Calcium 8.9 mg/dL (8.7-10.4)
--- NOTE | 2025-07-19 22:14 | DVH ---
CHEST RADIOGRAPH Indication: sob Technique: 1 view Comparison: XY CHEST PORTABLE on DOS: 03/04/25 FINDINGS: Lines and Tubes: None Lungs/Pleura: No focal consolidation, pleural effusion or pneumothorax. Similar appearance of diffuse interstitial opacities, favored chronic. Cardiomediastinum: Unremarkable. Other: No acute osseous abnormality. IMPRESSION: 1. No acute cardiopulmonary abnormality or significant change from prior exam.
[2025-07-19 22:15] LABS: Hematocrit 41.4 % (41.0-53.0); Hemoglobin 13.9 g/dL (13.5-17.5); Mean Corpuscular Hemoglobin 30.0 pg (28.0-32.0); Mean Corpuscular Volume 89.4 fL (80.0-100.0); Nucleated Red Blood Cells % 0.0 %
[2025-07-19 22:18] LABS: BUN/Creatinine Ratio 11.4 (10.0-20.0); Blood Urea Nitrogen 15 mg/dL (9-23); Glucose 90 mg/dL (74-106)
[2025-07-19 22:20] LABS: Chloride 111 mmol/L (98-107)
--- NOTE | 2025-07-19 22:27 | ED.PDOC ---
History of Present Illness HPI Comments 39 y/o M is BIBA for c/c of nonradiating, substernal chest pain. Patient endorses on sudden, unprovoked, and atraumatic onset of pain 30x minutes ago prior to arrival, this evening. Significant history for CHF, cardiomyopathy, lung lesion, porphyria, HTN, and former polysubstance abuse (abstinent for 2 years, now). Denial of any shortness of breath, palpitations, nausea, vomiting, or further associated symptoms. Chief Complaint: Chest Pain Time Seen by MD: 21:30 Reviewed Notes: Nurses Notes, Corporate Travel Consultant Notes, Medications, Allergies Allergies: Coded Allergies: [place] (Verified Allergy, Unknown, 05/27/24) Home Meds Active Scripts Metoprolol Tartrate (Metoprolol Tartrate) 25 Mg Tab, 1 TAB PO BID, #60 TAB 1 Refill Prov:MIRNA STILL MD 03/06/25 Furosemide (Furosemide) 40 Mg Tab, 1 TAB PO DAILY, #90 TAB Prov:MIRNA STILL MD 03/06/25 Sacubitril-Valsartan (Entresto 24-26 mg) 1 Tab Tab, 1 TAB PO BID, #90 TAB 1 Refill Prov:MIRNA STILL MD 03/06/25 Reported Medications Sumatriptan Succinate (Sumatriptan Succinate) 100 Mg Tab, 100 MG PO PRN for FOR HEADACHE, TAB 05/21/24 Information Source: Patient, Emergency Med Personnel Mode of Arrival: EMS Severity: Moderate Timing: Minutes Duration: Since onset Prehospital treatment: 12 Lead EKG, Accucheck, ASA (324mg), Sample Washer, IVF, NTG (3x 0.4mg ) Past Medical History PAST MEDICAL HISTORY: CHF (drug-induced ), HTN Past Medical History (Other): Lung Lesion and porphyria cardiomyopathy Surgical History: Denies all surgeries Family History Family History: Family hx of Cancer Social History Smoker: Non-Smoker Alcohol: Sober Drugs: Marijuana, Methamphetamine, Other (sober) Lives In: Home All Other Systems: Reviewed and Negative (Comprehensive review of systems are negative unless stated in HPI) Physical Exam General Appearance: Moderate Distress HEENT: Normal ENT Inspection, Pharynx Normal, TMs Normal Neck: Full Range of Motion, Non-Tender, Normal, Normal Inspection Respiratory: Chest Non-Tender, Lungs Clear, No Accessory Muscle Use, No Respiratory Distress, Normal Breath Sounds Cardiovascular: No Edema, No JVD, No Murmur, No Gallop, Normal Peripheral Pulses, Regular Rate/Rhythm Breast Exam: Deferred Gastrointestinal: No Organomegaly, Non Tender, No Pulsatile Mass, Normal Bowel Sounds, Soft Genitalia: Deferred Pelvic: Deferred Rectal: Deferred Extremities: No calf tenderness, Normal capillary refill, Normal inspection, Normal range of motion, Non-tender, No pedal edema Musculoskeletal : Apperance: Normal Neurologic: Alert, de icer II-XII nml as Tested, No Motor Deficits, Normal Affect, Normal Mood, No Sensory Deficits Cerebellar Function: NOT DONE Reflexes: NOT DONE Skin: Dry, Normal Color, Warm Peripheral Pulses: 3+ Radial (R), 3+ Radial (L) Lymphatic: No Adenopathy Was a procedure done? Was a procedure done?: No EKG EKG : Cardiac Rhythm: NSR Differential Dx Considerations may include: acute CHF exacerbation, PA, ACS, PE, URI, PNA, anxiety, angina pectoris, among others X-Ray, Labs, Meds, VS Vital Signs Date Time Temp Pulse Resp B/P (MAP) Pulse Ox O2 Delivery O2 Flow Rate FiO2 07/19/25 21:39 98.2 98 20 148/100 98 98.2 Lab Test 07/19/25 22:23 07/19/25 21:47 Range/Units Troponin I High Sensitivity Pending 19 </=54 ng/L White Blood Count 6.0 4.4-10.8 10^3/uL Red Blood Count 4.63 4.5-5.90 10^6/uL Hemoglobin 13.9 13.5-17.5 g/dL Hematocrit 41.4 41.0-53.0 % Mean Corpuscular Volume 89.4 80.0-100.0 fL Mean Corpuscular Hemoglobin 30.0 28.0-32.0 pg Mean Corpuscular Hemoglobin Concent 33.6 32.0-36.0 g/dL Red Cell Distribution Width 16.1 H 11.8-14.3 % Platelet Count 159 140-450 10^3/uL Mean Platelet Volume 9.9 6.9-10.8 fL Neutrophils (%) (Auto) 55.0 37.0-80.0 % Lymphocytes (%) (Auto) 35.2 10.0-50.0 % Monocytes (%) (Auto) 5.6 0.0-12.0 % Eosinophils (%) (Auto) 3.4 0.0-7.0 % Basophils (%) (Auto) 0.8 0.0-2.0 % Neutrophils # (Auto) 3.3 1.6-8.6 10 ^3/uL Lymphocytes # (Auto) 2.1 0.4-5.4 10 ^3/uL Monocytes # (Auto) 0.3 0-1.3 10 ^3/uL Eosinophils # (Auto) 0.2 0-0.8 10 ^3/uL Basophils # (Auto) 0 0-0.2 10 ^3/uL Nucleated Red Blood Cells 0.0 % Sodium Level 145 136-145 mmol/L Potassium Level 3.9 3.5-5.1 mmol/L Chloride Level 111 H 98-107 mmol/L Carbon Dioxide Level 23 20-31 mmol/L Anion Gap 11 5-15 Blood Urea Nitrogen 15 9-23 mg/dL Creatinine 1.32 H 0.700-1.30 mg/dL Glomerular Filtration Rate Calc 71 >90 mL/min BUN/Creatinine Ratio 11.4 10.0-20.0 Serum Glucose 90 74-106 mg/dL Calcium Level 8.9 8.7-10.4 mg/dL B-Type Natriuretic Peptide 1210.32 0-100 pg/mL [place] [id number] Ph: [phone] DIAGNOSTIC IMAGING Diagnostic Imaging Report : [id number] Signed PATIENT: TREVON CHANCE ACCT: [id number] UNIT: [id number] : 1985 LOC: ER ROOM / BED: / AGE / SEX: 39 / M ADM STATUS: REG ER SERVICE 37 ORDERING PHYSICIAN: VLADIMIR GUTIERREZ MD PROCEDURE(s): CXRP - CHEST PORTABLE REASON: sob ORDER NUMBER(s): [id number], ACCESSION NUMBER(s): [id number] CHEST RADIOGRAPH Indication: sob Technique: 1 view Comparison: XY CHEST PORTABLE on DOS: 03/04/25 FINDINGS: Lines and Tubes: None Lungs/Pleura: No focal consolidation, pleural effusion or pneumothorax. Similar appearance of diffuse interstitial opacities, favored chronic. Cardiomediastinum: Unremarkable. Other: No acute osseous abnormality. IMPRESSION: 1. No acute cardiopulmonary abnormality or significant change from prior exam. ATED BY: PARESH SUMMERS MD DICTATED DATE/TIME: 07/19/252210 SIGNED BY: PARESH SUMMERS MD SIGNED DATE/TIME: 07/19/252210 CC: Patient alert. Complaining of chest pain. History of CHF. Chest x-ray reviewed does not show any acute changes. History of drug use. Sober for years. EKG reviewed does not show any acute changes. Continue monitoring. Time of 1ST Reevaluation: 22:00 Reevaluation 1ST: Unchanged Patient Education/Counseling: Need For Follow Up Family Education/Counseling: No Family Present SEPSIS Sepsis Screen Date sepsis recognized/suspect: Jul 19, 2025 Time Sepsis recognized/suspect: 2138 Recent Procedure: No On Antibiotic Therapy: No Respiratory Rate >20: No Heart Rate >90: Yes Temp<36 C (96.8 F) or >38.3 C: No SBP <90 or MAP <65 mmHG: No New Acute Mental Status Change: No Is the patient on CPAP, BIPAP,: No Physician Orders Electrocardigram (07/19/25 21:38) Troponin-I Hs (07/19/25 22:38) Troponin-I Hs (07/20/25 00:38) Electrocardigram (07/19/25 22:38) Electrocardigram (07/20/25 00:38) Chest Portable (07/19/25 21:38) Vital Signs Date Time Temp Pulse Resp B/P (MAP) Pulse Ox O2 Delivery O2 Flow Rate FiO2 07/19/25 21:39 98.2 98 20 148/100 98 98.2 Laboratory Tests Test 07/19/25 21:47 White Blood Count 6.0 10^3/uL (4.4-10.8) Departure 1 Departure Time of Disposition: 23:16 Impression: Primary Impression: Chest pain of unknown etiology Disposition: ADMITTED INPATIENT Admit to: Med Surg Condition: Guarded Critical Care Note Critical Care Time?: Yes (90 min-critical care time only) Stability Stability form required: No Heart Score Heart Score: Heart Score Response (Comments) Value History Moderate Suspicious 1 EKG Normal 0 Age <45 0 Risk Factors 1 or 2 risk factors 1 Troponin Normal limit 0 Total 2 I personally scribed for VLADIMIR GUTIERREZ MD ([email or web address]) on 07/19/25 at 22:27. Electronically submitted by Karthikeyan Dobson ([email or web address]). I personally scribed for VLADIMIR GUTIERREZ MD ([email or web address]) on 07/19/25 at 22:33. Electronically submitted by Karthikeyan Dobson ([email or web address]). VLADIMIR GUTIERREZ MD Jul 19, 2025 22:27
--- NOTE | 2025-07-20 07:03 | ECG ---
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
== END 2025-07-19 23:53 | disposition left against medical advice (07) ==
LOC: ER 21:37 → EDBD 21:37 → ER 23:53
DX: R07.2 Precordial pain (principal); R07.9 Chest pain, unspecified; I11.0 Hypertensive heart disease with heart failure; I50.9 Heart failure, unspecified; Z79.899 Other long term (current) drug therapy
CPT/HCPCS: 36415; 71045; 80048; 83880; 84484; 85025; 93005

== ENCOUNTER 2025-08-08 11:17 | Inpatient (IN) | payer MEDICAID ==
[~2025-08-08] VITALS: Ht 185.4 cm; Wt 80.4 kg
--- NOTE | 2025-08-08 11:34 | ED.PDOC ---
SOB-HPI HPI Comments This is a 39 year old male [place] presenting to the ED with chief complaint of SOB. Patient reports that he has been experiencing SOB with associated nausea, vomiting, and leg swelling for the past 5 days. Patient relays that he normally wakes up daily with SOB due to his history of CHF, but the N/V is new. EMS states patient was tachycardic in the 120s along with having an elevated BP at 165/108. EMS notes they provided 4mg of Zofran en route to the ED. Patient denies any chest pain, dizziness, fever, cough, diarrhea, or abdominal pain. Chief Complaint: Shortness of Breath Time Seen by MD: 11:31 Reviewed notes: Nurses Notes, International Banker Notes, Medications, Allergies Information Source: Patient, Emergency Med Personnel Mode of Arrival: EMS Severity: Moderate Timing: Days Duration: Since onset Context: At Rest PE Risk Factors: None History of: CHF Prehospital treatment: None Modifying Factors: Nothing Associated Signs and Symptoms: Leg Swelling Past Medical History PAST MEDICAL HISTORY: CHF, HTN Surgical History: Denies all surgeries Family History Family History: Reviewed,noncontributory to illness, Family hx of Cancer Social History Smoker: Non-Smoker Alcohol: Sober Drugs: Marijuana, Methamphetamine, Other Lives In: Home Constitutional: denies: chills, diaphoresis, fatigue, fever, malaise, sweats, weakness, others EENTM: denies: blurred vision, double vision, ear bleeding, ear discharge, ear drainage, ear pain, ear ringing, eye pain, eye redness, hearing loss, mouth pain, mouth swelling, nasal discharge, nose bleeding, nose congestion, nose pain, photophobia, tearing, throat pain, throat swelling, voice changes, others Respiratory: reports: shortness of breath; denies: cough, hemoptysis, orthopnea, SOB at rest, SOB with excertion, stridor, wheezing, others Cardiovascular: reports: edema; denies: chest pain, dizzy spells, diaphoresis, Dyspnea on exertion, irregular heart beat, left arm pain, lightheadedness, palpitations, PND, syncope, others Gastrointestinal: reports: nausea, vomiting; denies: abdomen distended, abdominal pain, blood streaked bowels, constipated, diarrhea, dysphagia, difficulty swallowing, hematemesis, melena, poor appetite, poor fluid intake, rectal bleeding, rectal pain, others Genitourinary: denies: burning, dysuria, flank pain, frequency, hematuria, incontinence, penile discharge, penile sore, pain, testicle pain, testicle swelling, urgency, others Neurological: denies: dizziness, fainting, headache, left sided numbness, left sided weakness, numbness, paresthesia, pre-existing deficit, right sided numbness, right sided weakness, seizure, speech problems, tingling, tremors, weakness, others Musculoskeletal: denies: back pain, gout, joint pain, joint swelling, muscle pain, muscle stiffness, neck pain, others Integumetry: denies: bruises, change in color, change in hair/nails, dryness, laceration, lesions, lumps, rash, wounds, others Allergic/Immunocompromised: denies: Difficulty Healing, Frequent Infections, Hives, Itching, others Hematologic/Lymphatic: denies: anemia, blood clots, easy bleeding, easy bruising, swollen glands, others Endocrine: denies: excessive hunger, excessive sweating, excessive thirst, excessive urination, flushing, intolerance to cold, intolerance to heat, unexplained weight gain, unexplained weight loss, others Psychiatric: denies: anxiety, bipolar disorder, depression, hopeless, panic disorder, schizophrenia, sleepless, suicidal, others All Other Systems: Reviewed and Negative Physical Exam General Appearance: Moderate Distress, Normal HEENT: Normal ENT Inspection, Pharynx Normal, TMs Normal Neck: Full Range of Motion, Non-Tender, Normal, Normal Inspection Respiratory: Chest Non-Tender, Lungs Clear, No Accessory Muscle Use, No Respiratory Distress, Normal Breath Sounds Cardiovascular: No Edema, No JVD, No Murmur, No Gallop, Normal Peripheral Pulses, Regular Rate/Rhythm Breast Exam: Deferred Gastrointestinal: No Organomegaly, Non Tender, No Pulsatile Mass, Normal Bowel Sounds, Soft Genitalia: Deferred Pelvic: Deferred Rectal: Deferred Extremities: No calf tenderness, Normal capillary refill, Normal inspection, Normal range of motion, Non-tender, No pedal edema Musculoskeletal : Apperance: Normal Neurologic: Alert, payroll and 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 Was a procedure done?: No Differential Dx Differential Diagnosis: Anxiety, Asthma, Bronchitis, CHF, COPD X-Ray, Labs, Meds, VS Vital Signs Date Time Temp Pulse Resp B/P (MAP) Pulse Ox O2 Delivery O2 Flow Rate FiO2 08/08/25 11:35 106 08/08/25 11:25 98.0 95 20 165/108 98 98.0 08/08/25 11:21 106 Lab Test 08/08/25 12:46 Range/Units White Blood Count 6.0 4.4-10.8 10^3/uL Red Blood Count 5.14 4.5-5.90 10^6/uL Hemoglobin 15.6 13.5-17.5 g/dL Hematocrit 46.3 41.0-53.0 % Mean Corpuscular Volume 90.1 80.0-100.0 fL Mean Corpuscular Hemoglobin 30.3 28.0-32.0 pg Mean Corpuscular Hemoglobin Concent 33.6 32.0-36.0 g/dL Red Cell Distribution Width 15.3 H 11.8-14.3 % Platelet Count 182 140-450 10^3/uL Mean Platelet Volume 9.3 6.9-10.8 fL Neutrophils (%) (Auto) 66.6 37.0-80.0 % Lymphocytes (%) (Auto) 24.2 10.0-50.0 % Monocytes (%) (Auto) 6.6 0.0-12.0 % Eosinophils (%) (Auto) 1.7 0.0-7.0 % Basophils (%) (Auto) 0.9 0.0-2.0 % Neutrophils # (Auto) 4.0 1.6-8.6 10 ^3/uL Lymphocytes # (Auto) 1.5 0.4-5.4 10 ^3/uL Monocytes # (Auto) 0.4 0-1.3 10 ^3/uL Eosinophils # (Auto) 0.1 0-0.8 10 ^3/uL Basophils # (Auto) 0.1 0-0.2 10 ^3/uL Nucleated Red Blood Cells 0.2 % Sodium Level 144 136-145 mmol/L Potassium Level 4.8 3.5-5.1 mmol/L Chloride Level 108 H 98-107 mmol/L Carbon Dioxide Level 27 20-31 mmol/L Anion Gap 9 5-15 Blood Urea Nitrogen 24 H 9-23 mg/dL Creatinine 1.36 H 0.700-1.30 mg/dL Glomerular Filtration Rate Calc 69 >90 mL/min BUN/Creatinine Ratio 17.6 10.0-20.0 Serum Glucose 91 74-106 mg/dL Calcium Level 9.3 8.7-10.4 mg/dL Troponin I High Sensitivity 33 </=54 ng/L B-Type Natriuretic Peptide 1826.17 0-100 pg/mL [place] [id number] Ph: [phone] DIAGNOSTIC IMAGING Diagnostic Imaging Report : [id number] Signed PATIENT: TREVON CHANCE ACCT: [id number] UNIT: [id number] : 1985 LOC: ER ROOM / BED: / AGE / SEX: 39 / M ADM STATUS: REG ER SERVICE 1129 ORDERING PHYSICIAN: VLADIMIR GUTIERREZ MD PROCEDURE(s): CXRP - CHEST PORTABLE REASON: sob ORDER NUMBER(s): [id number], ACCESSION NUMBER(s): [id number] CHEST RADIOGRAPH Indication: sob Technique: Single frontal view of the chest was obtained Comparison: XY CHEST PORTABLE on DOS: 07/19/25, XY CHEST PORTABLE on DOS: 03/04/25 FINDINGS: The cardiac silhouette is enlarged. The lungs demonstrate perihilar airspace opacities. Left basilar airspace opacities. The pulmonary vasculature is prominent. There is no pleural effusion. There is no pneumothorax. IMPRESSION: Cardiomegaly with pulmonary vascular congestion and bilateral perihilar airspace opacities. Left basilar airspace opacities. ATED BY: INOCENCIO HUERTAS MD DICTATED DATE/TIME: 08/08/25 1300 SIGNED BY: INOCENCIO HUERTAS MD SIGNED DATE/TIME: 08/08/25 1300 CC: Patient alert. Vitals stable. Came in because of shortness a breath. Answering questions. Chest x-ray reviewed does show congestion. Was given Lasix. History of CHF. No swelling of his bilateral lower extremity. Explained to the patient. Continue monitoring. Images Reviewed?: Images reviewed and evaluated by me Time of 1ST Reevaluation: 12:31 Reevaluation 1ST: Unchanged Patient Education/Counseling: Diagnosis, Treatment Family Education/Counseling: No Family Present SEPSIS Sepsis Screen Physician Orders Electrocardigram (08/08/25 11:22) Chest Portable (08/08/25 11:29) Troponin-I Hs (08/08/25 12:29) Troponin-I Hs (08/08/25 14:29) Vital Signs Date Time Temp Pulse Resp B/P (MAP) Pulse Ox O2 Delivery O2 Flow Rate FiO2 08/08/25 11:35 106 08/08/25 11:25 98.0 95 20 165/108 98 98.0 08/08/25 11:21 106 Laboratory Tests Test 08/08/25 12:46 White Blood Count 6.0 10^3/uL (4.4-10.8) Departure 1 Departure Time of Disposition: 13:51 Impression: Primary Impression: CHF (congestive heart failure) Qualified Codes: I50.43 - Acute on chronic combined systolic (congestive) and diastolic (congestive) heart failure Disposition: ADMITTED INPATIENT Admit to: Med Surg Condition: Guarded Critical Care Note Critical Care Time?: Yes (90 min-critical care time only) Stability Stability form required: No Heart Score Heart Score: Heart Score Response (Comments) Value History Highly Suspicious 2 EKG Normal 0 Age <45 0 Risk Factors 1 or 2 risk factors 1 Troponin Normal limit 0 Total 3 I personally scribed for VLADIMIR GUTIERREZ MD ([email or web address]) on 08/08/25 at 11:34. Electronically submitted by Mahamed Mosher ([email or web address]). I personally scribed for VLADIMIR GUTIERREZ MD ([email or web address]) on 08/08/25 at 11:35. Electronically submitted by Mahamed Mosher ([email or web address]). I personally scribed for VLADIMIR GUTIERREZ MD ([email or web address]) on 08/08/25 at 13:21. Electronically submitted by Mahamed Mosher ([email or web address]). VLADIMIR GUTIERREZ MD Aug 08, 2025 11:34
--- NOTE | 2025-08-08 12:58 | DVH ---
CHEST RADIOGRAPH Indication: sob Technique: Single frontal view of the chest was obtained Comparison: XY CHEST PORTABLE on DOS: 07/19/25, XY CHEST PORTABLE on DOS: 03/04/25 FINDINGS: The cardiac silhouette is enlarged. The lungs demonstrate perihilar airspace opacities. Left basilar airspace opacities. The pulmonary vasculature is prominent. There is no pleural effusion. There is no pneumothorax. IMPRESSION: Cardiomegaly with pulmonary vascular congestion and bilateral perihilar airspace opacities. Left basilar airspace opacities.
[2025-08-08 13:08] LABS: Hematocrit 46.3 % (41.0-53.0); Hemoglobin 15.6 g/dL (13.5-17.5); Mean Corpuscular Hemoglobin 30.3 pg (28.0-32.0); Mean Corpuscular Volume 90.1 fL (80.0-100.0); Nucleated Red Blood Cells % 0.2 %
[2025-08-08 13:15] LABS: Potassium 4.8 mmol/L (3.5-5.1); Sodium 144 mmol/L (136-145)
[2025-08-08 13:16] LABS: Anion Gap 9 (5-15); Calcium 9.3 mg/dL (8.7-10.4); Carbon Dioxide 27 mmol/L (20-31)
[2025-08-08 13:17] LABS: Chloride 108 mmol/L (98-107)
[2025-08-08 13:21] LABS: BUN/Creatinine Ratio 17.6 (10.0-20.0); Glucose 91 mg/dL (74-106)
[2025-08-08 13:22] LABS: Blood Urea Nitrogen 24 mg/dL (9-23)
[2025-08-08] MEDS: FUROSEMIDE 40 MG/4 ML VIAL IV ONE (14:50)
--- NOTE | 2025-08-08 15:40 | ECG ---
[facility] Test Date: 2025-08-08 Test Time: 11:19:08 Pat Name: TREVON CHANCE Department: [facility] ED Patient ID: [facility]-[id number] Room: 0298T Gender: M Supervisor Cab: JACOB : 1985 Requested By: VLADIMIR GUTIERREZ Order Number: [id number] Reading MD: Joel Cespedes Measurements Intervals [place] Rate: 106 P: 38 IA: 154 QRS: -24 QRSD: 92 T: 117 QT: 377 QTc: 501 Interpretive Statements Sinus tachycardia Left atrial enlargement Borderline left axis deviation RSR' in V1 or V2, right VCD or RVH Nonspecific T abnormalities, lateral leads Prolonged QT interval Electronically Signed On 08-12-2025 14:25:53 PDT by Joel Cespedes Please click the below link to view image of tracing.
[2025-08-08 16:05] VITALS: BP 149/109; PULSE 105; RESP 18; TEMP 97.5; O2SAT 100
[2025-08-08] MEDS: ONDANSETRON HCL 4 MG/2 ML VIAL IV PRN (18:13)
[2025-08-08] MEDS: FUROSEMIDE 20 MG/2 ML VIAL IV SCH (18:14)
--- NOTE | 2025-08-08 18:18 | DVHHP2 ---
History of Present Illness Reason for Visit: Shortness for breath History of Present Illness 39-year-old male with a history of congestive heart failure presents for evaluation of shortness for breath. Patient reports a two week history of worsening shortness for breath. He states over the past four days he has noted mild lower extremity swelling denies any chest pain or pressure. No cough or fever. No other acute complaints reported. Past Medical History Hypertension, congestive heart failure Past Surgical History Denies Family History Noncontributory Smoke: No ALCOHOL: none Drugs: Marijuana, Other (Methamphetamine) Lives: with Family Review of Systems Review of Systems Review of systems are currently negative otherwise addressed in HPI. Allergies: Coded Allergies: Gary (Verified Allergy, Unknown, 05/27/24) Medications Current Medications Medications Dose Ordered Sig/Devorah Route Start Time Stop Time Status Last Admin Dose Admin Furosemide 20 mg BIDD IV 08/08/25 18:00 08/08/25 18:14 20 MG Metoprolol Tartrate 25 mg BID PO 08/08/25 22:00 Sacubitril/ Valsartan 1 tab BID PO 08/08/25 22:00 Ondansetron HCl 4 mg Q4HP PRN IV 08/08/25 16:00 08/08/25 18:13 4 MG Acetaminophen 650 mg Q6HP PRN PO 08/08/25 16:00 Albuterol 2.5 mg Q6HPRN PRN NEB 08/08/25 16:00 Exam Vital Signs Vital Signs Date Time Temp Pulse Resp B/P (MAP) Pulse Ox O2 Delivery O2 Flow Rate FiO2 08/08/25 18:14 158/119 08/08/25 16:05 97.5 105 18 100 97.5 Exam Gen: 39-year-old male in mild distress. Skin: Warm, dry, normal color and texture, no rash. HEENT: Normocephalic atraumatic, mucous membranes moist and pink. Neck: Cervical and supraclavicular nodes normal without enlargement, trachea is midline, thyroid gland is normal without masses. Pulmonary: Clear to auscultation and percussion bilaterally. Cardiac: Regular rate and rhythm. No murmur Abdomen: Soft, nontender, nondistended, bowel sounds present all 4 quadrants, no guarding, no rigidity, no organomegaly. Extremities: No cyanosis, clubbing, no edema Neuro: Cranial nerves II through XII grossly intact, normal affect and speech, no focal motor deficits. Labs/Xrays ORDERING PHYSICIAN: VLADIMIR GUTIERREZ MD PROCEDURE(s): CXRP - CHEST PORTABLE REASON: sob ORDER NUMBER(s): [id number], ACCESSION NUMBER(s): [id number] CHEST RADIOGRAPH Indication: sob Technique: Single frontal view of the chest was obtained Comparison: XY CHEST PORTABLE on DOS: 07/19/25, XY CHEST PORTABLE on DOS: 03/04/25 FINDINGS: The cardiac silhouette is enlarged. The lungs demonstrate perihilar airspace opacities. Left basilar airspace opacities. The pulmonary vasculature is promin ent. There is no pleural effusion. There is no pneumothorax. IMPRESSION: Cardiomegaly with pulmonary vascular congestion and bilateral perihilar airspace opacities. Left basilar airspace opacities. Labs Test 08/08/25 15:37 08/08/25 12:46 Range/Units Troponin I High Sensitivity 32 </=54 ng/L White Blood Count 6.0 4.4-10.8 10^3/uL Red Blood Count 5.14 4.5-5.90 10^6/uL Hemoglobin 15.6 13.5-17.5 g/dL Hematocrit 46.3 41.0-53.0 % Mean Corpuscular Volume 90.1 80.0-100.0 fL Mean Corpuscular Hemoglobin 30.3 28.0-32.0 pg Mean Corpuscular Hemoglobin Concent 33.6 32.0-36.0 g/dL Red Cell Distribution Width 15.3 H 11.8-14.3 % Platelet Count 182 140-450 10^3/uL Mean Platelet Volume 9.3 6.9-10.8 fL Neutrophils (%) (Auto) 66.6 37.0-80.0 % Lymphocytes (%) (Auto) 24.2 10.0-50.0 % Monocytes (%) (Auto) 6.6 0.0-12.0 % Eosinophils (%) (Auto) 1.7 0.0-7.0 % Basophils (%) (Auto) 0.9 0.0-2.0 % Neutrophils # (Auto) 4.0 1.6-8.6 10 ^3/uL Lymphocytes # (Auto) 1.5 0.4-5.4 10 ^3/uL Monocytes # (Auto) 0.4 0-1.3 10 ^3/uL Eosinophils # (Auto) 0.1 0-0.8 10 ^3/uL Basophils # (Auto) 0.1 0-0.2 10 ^3/uL Nucleated Red Blood Cells 0.2 % Sodium Level 144 136-145 mmol/L Potassium Level 4.8 3.5-5.1 mmol/L Chloride Level 108 H 98-107 mmol/L Carbon Dioxide Level 27 20-31 mmol/L Anion Gap 9 5-15 Blood Urea Nitrogen 24 H 9-23 mg/dL Creatinine 1.36 H 0.700-1.30 mg/dL Glomerular Filtration Rate Calc 69 >90 mL/min BUN/Creatinine Ratio 17.6 10.0-20.0 Serum Glucose 91 74-106 mg/dL Calcium Level 9.3 8.7-10.4 mg/dL B-Type Natriuretic Peptide 1826.17 0-100 pg/mL SEPSIS Sepsis Screen Date sepsis recognized/suspect: Aug 08, 2025 Time Sepsis recognized/suspect: 1124 Recent Procedure: No On Antibiotic Therapy: No Respiratory Rate >20: No Heart Rate >90: Yes Temp<36 C (96.8 F) or >38.3 C: No SBP <90 or MAP <65 mmHG: No New Acute Mental Status Change: No Is the patient on CPAP, BIPAP,: No Physician Orders Chest Portable (08/08/25 11:29) Furosemide Injection (Lasix Injection) (08/08/25 18:00) Metoprolol Tartrate Tablet (Lopressor Ta (08/08/25 22:00) Sacubitril-Valsartan (Entresto 24-26 Mg (08/08/25 22:00) Basic Metabolic Panel (08/09/25 04:00) Admit (08/08/25 15:53) Ondansetron Hcl (Zofran) (08/08/25 16:00) Cardiac Diet-2gna,Lofat,Lochol (08/08/25 Dinner) Condition: Stable (08/08/25 15:53) Acetaminophen Tablet (Tylenol Tablet) (08/08/25 16:00) Bedrest With Bathroom Privileg (08/08/25 15:53) Albuterol Medneb (Ventolin Medneb) (08/08/25 16:00) Vital Signs Date Time Temp Pulse Resp B/P (MAP) Pulse Ox O2 Delivery O2 Flow Rate FiO2 08/08/25 18:14 158/119 08/08/25 16:05 97.5 105 18 149/109 100 97.5 08/08/25 15:12 97.5 107 20 149/109 (122) 95 97.5 08/08/25 14:54 101 6 162/130 (141) 97 08/08/25 14:50 162/130 08/08/25 11:35 106 08/08/25 11:25 98.0 95 20 165/108 98 98.0 08/08/25 11:21 106 Laboratory Tests Test 08/08/25 12:46 White Blood Count 6.0 10^3/uL (4.4-10.8) Medications Medications Dose Ordered Sig/Devorah Route Start Time Stop Time Status Last Admin Dose Admin Furosemide 20 mg BIDD IV 08/08/25 18:00 08/08/25 18:14 20 MG Furosemide 40 mg ONCE ONCE IV 08/08/25 11:30 08/08/25 11:31 DC 08/08/25 14:50 40 MG Ondansetron HCl 4 mg Q4HP PRN IV 08/08/25 16:00 08/08/25 18:13 4 MG Assessment/Plan Assessment/Plan Assessment Acute on chronic congestive heart failure Acute kidney injury Questionable pneumonia Plan Admit the patient to Med surge to the hospitalist IV Lasix Azithromycin Med nebs Resume home medications Continue treatment per orders. Plan discussed with: Patient My Orders Orders - VIVIANE BARILLASCNJovana Procedure Category Date Status Time Furosemide Injection PHA 08/08/25 In Process (Lasix Injection) 18:00 Metoprolol Tartrate PHA 08/08/25 In Process Tablet (Lopressor Ta 22:00 Sacubitril-Valsartan PHA 08/08/25 In Process (Entresto 24-26 Mg 22:00 Basic Metabolic Panel LAB 08/09/25 Verified 04:00 Admit ADMIT 08/08/25 Transmitted 15:53 Ondansetron Hcl PHA 08/08/25 In Process (Zofran) 16:00 Cardiac DIET 08/08/25 Transmitted Diet-2gna,Lofat,Lochol Dinner Condition: Stable BRIAN 08/08/25 In Process 15:53 Acetaminophen Tablet PHA 08/08/25 In Process (Tylenol Tablet) 16:00 Bedrest With Bathroom BRIAN 08/08/25 In Process Privileg 15:53 Albuterol Medneb PHA 08/08/25 In Process (Ventolin Medneb) 16:00 Date of Service: Aug 08, 2025 Billing Provider: VIVIANE BARILLAS Common Visit Codes: [id number] INP/OBS CARE (HIGH) VIVIANE BARILLAS Aug 08, 2025 18:18
[2025-08-08 18:51] VITALS: BP 158/114; PULSE 104; RESP 18; TEMP 98.1; O2SAT 96
[2025-08-08 21:00] VITALS: BP 148/78; PULSE 98; RESP 20; TEMP 97.5; O2SAT 99
[2025-08-08] MEDS: SACUBITRIL-VALSARTAN 24mg/26mg TAB PO SCH (22:10)
[2025-08-08] MEDS: METOPROLOL TARTRATE 25 MG TAB PO SCH (22:10)
[2025-08-08 23:09] VITALS: PULSE 89; RESP 16; O2SAT 97
[2025-08-08] MEDS: ALBUTEROL SULF 2.5 MG/0.5ML(0.5%) NEB SOLN NEB PRN (23:09)
[2025-08-08 23:15] VITALS: PULSE 92; RESP 16; O2SAT 100
[2025-08-09] VITALS (10 sets, daily range): BP systolic 132–156; BP diastolic 81–119; PULSE 73–94; RESP 16–20; TEMP 97.2–98.3; O2SAT 90–99
[2025-08-09 07:11] LABS: Chloride 106 mmol/L (98-107); Potassium 4.0 mmol/L (3.5-5.1); Sodium 143 mmol/L (136-145)
[2025-08-09 07:12] LABS: Anion Gap 9 (5-15); Calcium 9.0 mg/dL (8.7-10.4); Carbon Dioxide 28 mmol/L (20-31)
[2025-08-09 07:17] LABS: BUN/Creatinine Ratio 11.0 (10.0-20.0); Blood Urea Nitrogen 16 mg/dL (9-23); Glucose 83 mg/dL (74-106)
[2025-08-09] MEDS: ACETAMINOPHEN 325 MG TAB PO PRN (08:56)
[2025-08-09] MEDS ORDERED: AZITHROMYCIN 500MG/ 250ML 250 ML IV SCH (10:00)
--- NOTE | 2025-08-09 12:52 | DVHPN2 ---
Reviewed: Care Plan, H&P, Labs, Medications, Previous Orders, Radiology Changes from previous H/P or p: No Changes Objective Vitals Vital Signs Date Time Temp Pulse Resp B/P (MAP) Pulse Ox O2 Delivery O2 Flow Rate FiO2 08/09/25 08:48 97.7 91 16 156/106 (123) 99 97.7 08/08/25 23:09 Room Air 0.0 08/08/25 23:09 21 Intake/Output Intake and Output 08/09/25 07:00 Intake Total 400 ml Balance 400 ml Intake Oral 400 ml # Voids 3 Medications Current Medications Medications Dose Ordered Sig/Devorah Route Start Time Stop Time Status Last Admin Dose Admin Furosemide 20 mg BIDD IV 08/08/25 18:00 08/09/25 05:32 20 MG Metoprolol Tartrate 25 mg BID PO 08/08/25 22:00 08/08/25 22:10 25 MG Sacubitril/ Valsartan 1 tab BID PO 08/08/25 22:00 08/09/25 08:55 1 TAB Ondansetron HCl 4 mg Q4HP PRN IV 08/08/25 16:00 08/08/25 18:13 4 MG Acetaminophen 650 mg Q6HP PRN PO 08/08/25 16:00 08/09/25 08:56 650 MG Albuterol 2.5 mg Q6HPRN PRN NEB 08/08/25 16:00 08/08/25 23:09 2.5 MG Laboratory Results Laboratory Tests 08/08/25 12:46 08/09/25 04:28 Chemistry Test 08/09/25 04:28 Calcium Level 9.0 mg/dL (8.7-10.4) Labs and/or images reviewed: Labs reviewed by me, Image(s) reviewed by me Assessment/Plan Assessment/Plan Acute exacerbation of chronic systolic versus diastolic congestive heart failure: BNP 1867: Echocardiogram cardiology consult for Dr. James Lazo 40 mg IV b.i.d., Entresto Hypertension: Metoprolol Time Spent 48 minutes Patient is full code Advanced care planning time 20 minutes Plan discussed with: Patient My Orders Orders - JIMMY MYLES MD Procedure Category Date Status Time Ceftriaxone Ivpb PHA 08/10/25 Transmitted Rocephin 09:00 Ceftriaxone Ivpb PHA 08/09/25 Transmitted Rocephin 13:00 Azithromycin 500mg/ PHA 08/10/25 Transmitted 250ml (Zithromax 50 10:00 Azithromycin 500mg/ PHA 08/09/25 Transmitted 250ml (Zithromax 50 13:00 Covid19 Antigen [facility] LAB 08/09/25 Transmitted Rapid Influenza A&B LAB 08/09/25 Transmitted 12:48 Furosemide Injection PHA 08/09/25 Verified (Lasix Injection) 13:00 Date of Service: Aug 09, 2025 Billing Provider: JIMMY MYLES MD Common Visit Codes: [id number] INP/OBS CARE(HIGH) Secondary Visit Codes: [id number] CARE PLAN 30 MINUTES JIMMY MYLES MD Aug 09, 2025 12:52
--- NOTE | 2025-08-09 13:55 | DVHINCON2 ---
Date Seen: Aug 09, 2025 Referring Physician MD Bruce Reason for Consultation CHF History of Present Illness This is a 39-year-old man who presented to the emergency room via EMS with a chief complaint of shortness of breath for two weeks. The patient complains of progressive shortness of breath associated with a productive cough with white/clear sputum, increased fatigue, PND, and orthopnea. Denies lower extremity edema, scrotal edema, increased abdominal girth, chest pain, palpitations, diaphoresis, or syncopal events. He underwent a 12 lead electrocardiogram revealing a sinus tachycardia rhythm suggestive of left ventricular hypertrophy, QTC interval at 501 ms, and nonspecific T-wave inversion to lateral leads. Serial troponin levels are negative. 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 Denies invasive cardiac work-up in the past. States he stopped taking his Lasix therap y in February, stopped metoprolol secondary to side effects, and did not take Entresto as his insurance did not cover it. Significant medical history includes methamphetamine induced HFrEF, hypertension, current alcohol use, and history of tobacco use. Past Medical History Past medical history reviewed. No other significant than mentioned above. Past Surgical History Past surgical history reviewed. No other significant than mentioned above. Family History: FH: breast cancer G8 MOTHER Family History Family history reviewed. Social History Recent history of methamphetamine use, denies at this time. Denies the use of tobacco, reports history in the past. Admits to alcohol use on the weekends. Allergies: Coded Allergies: [place] (Verified Allergy, Unknown, 05/27/24) Home Meds Active Scripts Metoprolol Tartrate (Metoprolol Tartrate) 25 Mg Tab, 1 TAB PO BID, #60 TAB 1 Refill Prov:MIRNA STILL MD 03/06/25 Furosemide (Furosemide) 40 Mg Tab, 1 TAB PO DAILY, #90 TAB Prov:MIRNA STILL MD 03/06/25 Sacubitril-Valsartan (Entresto 24-26 mg) 1 Tab Tab, 1 TAB PO BID, #90 TAB 1 Refill Prov:MIRNA STILL MD 03/06/25 Reported Medications Sumatriptan Succinate (Sumatriptan Succinate) 100 Mg Tab, 100 MG PO PRN for FOR HEADACHE, TAB 8/5/24 Home Meds Denies any home medications. Current Medications Current Medications Medications (Trade) Dose Ordered Sig/Devorah Route PRN Reason Start Time Stop Time Status Last Admin Furosemide (Lasix Injection) 20 mg BIDD IV 08/08/25 18:00 08/09/25 12:50 DC 08/09/25 05:32 Metoprolol Tartrate (Lopressor Tablet) 25 mg BID PO 08/08/25 22:00 08/08/25 22:10 Sacubitril/ Valsartan (Entresto 24-26 Mg tab) 1 tab BID PO 08/08/25 22:00 08/09/25 08:55 Ondansetron HCl (Zofran) 4 mg Q4HP PRN IV NAUSEA / VOMITING 08/08/25 16:00 08/08/25 18:13 Acetaminophen (Tylenol Tablet) 650 mg Q6HP PRN PO PAIN SCALE 1-3 OR TEMP>100.4 08/08/25 16:00 08/09/25 08:56 Albuterol (Ventolin Medneb) 2.5 mg Q6HPRN PRN NEB SHORTNESS OF BREATH 08/08/25 16:00 08/08/25 23:09 Azithromycin 250 ml @ 125 mls/hr DAILY IV 08/09/25 10:00 08/08/25 20:23 DC Ceftriaxone Sodium 50 ml @ 100 mls/hr DAILY@09 IV 08/10/25 09:00 Azithromycin 250 ml @ 125 mls/hr DAILY IV 08/10/25 10:00 Furosemide (Lasix Injection) 40 mg BIDD IV 08/09/25 13:00 Review of Systems Constitutional: No symptom reported Ears, Nose, & Throat: No symptom reported Eyes: No symptom reported Neurological: No symptoms reported Pulmonary/Respiratory: SOB, PND, orthopnea, productive cough Cardiovascular: No symptom reported Gastrointestinal: No symptom reported Genitourinary: No symptom reported Musculoskeletal: No symptom reported Skin: No symptom reported Psychiatric: No symptom reported Endocrine: No symptom reported Hemotologic/Lymphatic: No symptom reported Vital Signs Vital Signs Date Time Temp Pulse Resp B/P (MAP) Pulse Ox O2 Delivery O2 Flow Rate FiO2 08/09/25 13:00 98.3 94 16 132/81 (98) 97 98.3 08/08/25 23:09 Room Air 0.0 08/08/25 23:09 21 Physical Exam General Appearance: Cooperative. Well developed. Well nourished. In no acute distress Head Exam: Normal inspection Neck Exam: Normal inspection. Non-tender. Normal alignment Pulmonary/Respiratory: Chest non-tender. Crackles to bilateral breath sounds Cardiovascular/Chest: Regular rate and rhythm. S1, S2. Sinus rhythm with QTC at 501 ms, suggestive of LVH, nonspecific T-wave inversion to lateral leads. No murmurs. No JVD. Peripheral Pulses: 2+ Radial (R). 2+ Radial (L). 2+ Pedal (R). 2+ Pedal (L) Abdominal Exam: Normal bowel sounds. Soft. Nontender. No hepatospenomegaly. No masses Ankle Exam: Negative ankle edema Lower extremities: Negative lower extremity edema Neuro/Mental Status: A&O x4. Coherent Thoughts/Psych: Normal thought pattern. Appropriate mood and affect. Good judgement and insight Appearance: In no acute distress Skin Exam: Normal inspection. Normal color. Warm. Dry Labs/Diagnostic Data Labs Test 08/09/25 04:28 08/08/25 15:37 08/08/25 12:46 Range/Units Sodium Level 143 136-145 mmol/L Potassium Level 4.0 3.5-5.1 mmol/L Chloride Level 106 98-107 mmol/L Carbon Dioxide Level 28 20-31 mmol/L Anion Gap 9 5-15 Blood Urea Nitrogen 16 9-23 mg/dL Creatinine 1.45 H 0.700-1.30 mg/dL Glomerular Filtration Rate Calc 64 >90 mL/min BUN/Creatinine Ratio 11.0 10.0-20.0 Serum Glucose 83 74-106 mg/dL Calcium Level 9.0 8.7-10.4 mg/dL Troponin I High Sensitivity 32 </=54 ng/L White Blood Count 6.0 4.4-10.8 10^3/uL Red Blood Count 5.14 4.5-5.90 10^6/uL Hemoglobin 15.6 13.5-17.5 g/dL Hematocrit 46.3 41.0-53.0 % Mean Corpuscular Volume 90.1 80.0-100.0 fL Mean Corpuscular Hemoglobin 30.3 28.0-32.0 pg Mean Corpuscular Hemoglobin Concent 33.6 32.0-36.0 g/dL Red Cell Distribution Width 15.3 H 11.8-14.3 % Platelet Count 182 140-450 10^3/uL Mean Platelet Volume 9.3 6.9-10.8 fL Neutrophils (%) (Auto) 66.6 37.0-80.0 % Lymphocytes (%) (Auto) 24.2 10.0-50.0 % Monocytes (%) (Auto) 6.6 0.0-12.0 % Eosinophils (%) (Auto) 1.7 0.0-7.0 % Basophils (%) (Auto) 0.9 0.0-2.0 % Neutrophils # (Auto) 4.0 1.6-8.6 10 ^3/uL Lymphocytes # (Auto) 1.5 0.4-5.4 10 ^3/uL Monocytes # (Auto) 0.4 0-1.3 10 ^3/uL Eosinophils # (Auto) 0.1 0-0.8 10 ^3/uL Basophils # (Auto) 0.1 0-0.2 10 ^3/uL Nucleated Red Blood Cells 0.2 % B-Type Natriuretic Peptide 1826.17 0-100 pg/mL Assessment Acute on chronic decompensated HFrEF, NYHA Class III Likely drug-induced/dilated cardiomyopathy Severe tricuspid regurgitation Hypertensive urgency Recent methamphetamine use Medical non-adherence Plan/Recommendation (Dr. Ramirez) Recent transthoracic echocardiogram revealed LVEF 10-15% by visual estimate, severe global LV dysfunction, and dilated LV. Initiate preload and afterload reduction, strict I&Os, daily weight, fluid restriction, and low-Na diet. Initiate full GDMT for CHF and titrate as tolerated. Continue aggressive blood pressure control. Continue with UDS. Strongly counseled on medical compliance and routine cardiology follow-ups. Kindly call if in need of further recommen dations. Signing off at this time. Thank you for allowing us to participate in this patient's care. This medical document was created using an electronic medical record system with voice recognition software and computerized dictation system. Although this document has been carefully reviewed, there might still be some phonetic and typographical errors. Occasional wrong-word or ``sound-alike substitutions may have occurred due to the inherent limitations of voice recognition software. These areas are purely typographical due to imperfections of the software programs and do not reflect any compromise in the patient's medical care. Please read the chart carefully and recognize, using context, where these substitutions have occurred. Plan discussed with: Patient, Other NYHA Physical activity limitations: Class3(Marked) ordinary (activity causes symtoms) Date of Service: Aug 09, 2025 Billing Provider: BRITTA RATLIFF Cardiology Common Codes: [id number] INP/OBS CARE (High) BRITTA RATLIFF Aug 09, 2025 13:55
[2025-08-09 14:25] LABS: Triglycerides 69 mg/dL (< 150)
[2025-08-09] MEDS: FUROSEMIDE 20 MG/2 ML VIAL IV SCH (14:25)
[2025-08-09 14:27] LABS: Cholesterol 170 mg/dL (< 200); HDL Cholesterol 40 mg/dL (40-59)
[2025-08-09] MEDS: AZITHROMYCIN 500MG/ 250ML 250 ML IV ONE (15:00)
[2025-08-09 15:47] LABS: COVID19 ANTIGEN SOFIA FIA NEGATIVE (NEGATIVE)
[2025-08-09 17:26] LABS: Amphetamine Screen, Urine Neg (NEGATIVE); Barbiturate Scree,Urine Neg (NEGATIVE); Benzodiazephine Screen, Urine Neg (NEGATIVE); Cannabinoid Screen, Urine Pos (NEGATIVE); Cocaine Screen, Urine Neg (NEGATIVE); Opiate Scree,Urine Neg (NEGATIVE); Phencyclidine Screen, Urine Neg (NEGATIVE)
[2025-08-09] MEDS: CARVEDILOL 12.5 MG TAB PO SCH (21:30)
[2025-08-10 01:00] VITALS: BP 147/112; PULSE 82; RESP 18; TEMP 97.4; O2SAT 100
[2025-08-10 05:00] VITALS: BP 151/114; PULSE 87; RESP 18; TEMP 97.3; O2SAT 97
[2025-08-10 08:00] VITALS: PULSE 115
[2025-08-10] MEDS: EMPAGLIFLOZIN 10 MG TAB PO SCH (08:53)
[2025-08-10] MEDS: VALSARTAN 80 MG TAB PO SCH (08:53)
[2025-08-10] MEDS: SPIRONOLACTONE 25 MG TAB PO SCH (08:54)
[2025-08-10 09:00] VITALS: BP 121/59; PULSE 110; RESP 17; TEMP 97.9; O2SAT 97
[2025-08-10 10:16] VITALS: O2SAT 100
[2025-08-10] MEDS: AZITHROMYCIN 500MG/ 250ML 250 ML IV SCH (10:43)
--- NOTE | 2025-08-10 11:24 | DVHPN2 ---
Reviewed: Care Plan, H&P, Labs, Medications, Previous Orders, Radiology Changes from previous H/P or p: No Changes Objective Vitals Vital Signs Date Time Temp Pulse Resp B/P (MAP) Pulse Ox O2 Delivery O2 Flow Rate FiO2 08/10/25 10:16 100 Room Air 0.0 08/10/25 10:16 21 08/10/25 10:00 110 121/59 08/10/25 09:00 97.9 17 97.9 Intake/Output Intake and Output 08/10/25 07:00 Intake Total 1940 ml Balance 1940 ml Intake Oral 1640 ml IV Total 300 ml # Voids 15 Medications Current Medications Medications Dose Ordered Sig/Devorah Route Start Time Stop Time Status Last Admin Dose Admin Ondansetron HCl 4 mg Q4HP PRN IV 08/08/25 16:00 08/08/25 18:13 4 MG Acetaminophen 650 mg Q6HP PRN PO 08/08/25 16:00 08/09/25 08:56 650 MG Albuterol 2.5 mg Q6HPRN PRN NEB 08/08/25 16:00 08/09/25 15:42 2.5 MG Ceftriaxone Sodium 50 ml @ 100 mls/hr DAILY@09 IV 08/10/25 09:00 08/10/25 08:53 100 MLS/HR Azithromycin 250 ml @ 125 mls/hr DAILY IV 08/10/25 10:00 08/10/25 10:43 125 MLS/HR Furosemide 40 mg BIDD IV 08/09/25 13:00 08/10/25 05:33 40 MG Carvedilol 12.5 mg Q12HR PO 08/09/25 22:00 Valsartan 160 mg DAILY PO 08/10/25 10:00 08/10/25 08:53 160 MG Spironolactone 25 mg DAILY PO 08/10/25 10:00 08/10/25 08:54 25 MG Empaglifozin 10 mg DAILY PO 08/10/25 10:00 08/10/25 08:53 10 MG Laboratory Results Laboratory Tests 08/08/25 12:46 08/09/25 04:28 Labs and/or images reviewed: Labs reviewed by me, Image(s) reviewed by me Assessment/Plan Assessment/Plan Acute exacerbation of chronic systolic versus diastolic congestive heart failure: BNP 186: Echocardiogram 10-15 % ejection fraction, cardiology consult for Dr. Ramirez appreciated. Lasix 40 mg IV b.i.d., Entresto Hypertensive urgency: Metoprolol Drug-induced dilated cardiomyopathy Severe tricuspid regurgitation Medication noncompliance Recent meth use Time Spent 48 minutes Patient is full code Advanced care planning time 20 minutes Plan discussed with: Patient My Orders Orders - JIMMY MYLES MD Procedure Category Date Status Time Ceftriaxone 1gm/50ml PHA 08/10/25 In Process (Rocephin) 09:00 Azithromycin 500mg/ PHA 08/10/25 In Process 250ml (Zithromax 50 10:00 Furosemide Injection PHA 08/09/25 In Process (Lasix Injection) 13:00 * Cardiology Consult CONS 08/09/25 Transmitted 12:52 Initiate Vte BRIAN 08/09/25 In Process Prophylaxis 15:19 Date of Service: Aug 10, 2025 Billing Provider: JIMMY MYLES MD Common Visit Codes: [id number] INP/OBS CARE(HIGH) JIMMY MYLES MD Aug 10, 2025 11:24
[2025-08-10 13:00] VITALS: BP 140/106; PULSE 100; RESP 16; TEMP 97.3; O2SAT 95
--- NOTE | 2025-08-11 08:35 | DVHDS2 ---
Discharge Summary Date of Admission Aug 08, 2025 at 15:53 Date of Discharge: Aug 10, 2025 Admitting Diagnosis Shortness of breath Wounds: None Labs/Diagnostic Data: Laboratory Results Test 08/09/25 15:15 08/09/25 13:50 08/09/25 04:28 08/08/25 15:37 Urine Opiates Screen Neg (NEGATIVE) Urine Fentanyl Screen Neg (NEGATIVE) Urine Barbiturates Screen Neg (NEGATIVE) Urine Phencyclidine Screen Neg (NEGATIVE) Urine Amphetamines Screen Neg (NEGATIVE) Urine Benzodiazepines Screen Neg (NEGATIVE) Urine Cocaine Screen Neg (NEGATIVE) Urine Cannabinoids Screen Pos (NEGATIVE) Influenza Type A Antigen Negative (Negative) Influenza Type B Antigen Negative (Negative) SARS-CoV-2 Antigen (Rapid) Negative (NEGATIVE) Sodium Level 143 mmol/L (136-145) Potassium Level 4.0 mmol/L (3.5-5.1) Chloride Level 106 mmol/L (98-107) Carbon Dioxide Level 28 mmol/L (20-31) Anion Gap 9 (5-15) Blood Urea Nitrogen 16 mg/dL (9-23) Creatinine 1.45 mg/dL (0.700-1.30) Glomerular Filtration Rate Calc 64 mL/min (>90) BUN/Creatinine Ratio 11.0 (10.0-20.0) Serum Glucose 83 mg/dL (74-106) Hemoglobin A1c 5.5 % A1C (<5.7) Calcium Level 9.0 mg/dL (8.7-10.4) Triglycerides Level 69 mg/dL (< 150) Cholesterol Level 170 mg/dL (< 200) LDL Cholesterol 125 mg/dL (< 100) HDL Cholesterol 40 mg/dL (40-59) Thyroid Stimulating Hormone (TSH) 1.64 uIU/mL (0.55-4.78) Troponin I High Sensitivity 32 ng/L (</=54) Test 08/08/25 12:46 White Blood Count 6.0 10^3/uL (4.4-10.8) Red Blood Count 5.14 10^6/uL (4.5-5.90) Hemoglobin 15.6 g/dL (13.5-17.5) Hematocrit 46.3 % (41.0-53.0) Mean Corpuscular Volume 90.1 fL (80.0-100.0) Mean Corpuscular Hemoglobin 30.3 pg (28.0-32.0) Mean Corpuscular Hemoglobin Concent 33.6 g/dL (32.0-36.0) Red Cell Distribution Width 15.3 % (11.8-14.3) Platelet Count 182 10^3/uL (140-450) Mean Platelet Volume 9.3 fL (6.9-10.8) Neutrophils (%) (Auto) 66.6 % (37.0-80.0) Lymphocytes (%) (Auto) 24.2 % (10.0-50.0) Monocytes (%) (Auto) 6.6 % (0.0-12.0) Eosinophils (%) (Auto) 1.7 % (0.0-7.0) Basophils (%) (Auto) 0.9 % (0.0-2.0) Neutrophils # (Auto) 4.0 10 ^3/uL (1.6-8.6) Lymphocytes # (Auto) 1.5 10 ^3/uL (0.4-5.4) Monocytes # (Auto) 0.4 10 ^3/uL (0-1.3) Eosinophils # (Auto) 0.1 10 ^3/uL (0-0.8) Basophils # (Auto) 0.1 10 ^3/uL (0-0.2) Nucleated Red Blood Cells 0.2 % B-Type Natriuretic Peptide 1826.17 pg/mL (0-100) Other Laboratory Tests 08/09/25 04:28 08/08/25 12:46 Brief Hx & Hospital Course: 39-year-old male with a history of drug-induced dilated cardiomyopathy severe tricuspid regurgitation medication noncompliance chronic current meth abuser hypotension came in complaining of shortness of breaths patient has had a very high blood pressure of around 200 treated with the metoprolol patient has a ejection fraction 10-15 percent BNP was high 1866 diagnosed with a acute exacerbation of chronic systolic congestive heart failure seen by Cardiology Dr. Galo placed on Lasix and Entresto and other home medications. While awaiting further stabilization patient decided to leave AMA and left AMA. The patient's confirmed that he reached home. The patient is aware of the consequences and complications of leaving AMA including possible Consults/Reason for consult Cardiology Dr. Ramirez Operations or Procedures Echocardiogram Condition at Discharge: Fair Final Diagnosis/Problems List Acute exacerbation of chronic systolic versus diastolic congestive heart failure: BNP 1866: Echocardiogram 10-15 % ejection fraction, cardiology consult for Dr. Ramirez appreciated. Lasix 40 mg IV b.i.d., Entresto Hypertensive urgency: Metoprolol Drug-induced dilated cardiomyopathy Severe tricuspid regurgitation Medication noncompliance Recent meth use Discharge Disposition: AMA Discharge Instruct/Medications Activity comment: Not Applicable Patient left AMA Follow Up/Referral: Not applicable Patient left AMA Medications: Not applicable Patient left AMA Scheduled Furosemide (Furosemide), 1 TAB PO DAILY Metoprolol Tartrate (Metoprolol Tartrate), 1 TAB PO BID Sacubitril-Valsartan (Entresto 24-26 mg), 1 TAB PO BID Scheduled PRN Sumatriptan Succinate (Sumatriptan Succinate), 100 MG PO for FOR HEADACHE, (Reported) 39 (Time taken for discharge summary 39 minutes) Discharge Statement: "Patient was advised to return to the ER or call 911 if any headaches, dizziness, shortness of breath, chest pain, abdominal pain, bleeding, fevers, or worsening of medical condition. Patient was counseled about treatment plan, medications, possible side effects, patientverbalized understanding. All questions were answered to the best of my ability. This discharge took greater then 30 minutes in planning, reviewing documentation, counseling the patient, and discussing with other team members." ASSESSMENT ASSESSMENT Hospital Course Left AMA Assessment Date of Service: Aug 11, 2025 Billing Provider: JIMMY MYLES MD Common Visit Codes: [id number] DISCH DAY >30min JIMMY MYLES MD Aug 11, 2025 08:35
== END 2025-08-10 17:00 | disposition left against medical advice (07) | DRG 194 ==
LOC: ER 11:17 → EDBD 11:17 → OVERFLOW 15:53 → WEST WING 22:30 → TELE-WESTW 08-09 20:42
PROVIDERS: ADMIT Family Medicine; ATTEND Family Medicine
DX: I11.0 Hypertensive heart disease with heart failure (principal); N17.9 Acute kidney failure, unspecified; I16.0 Hypertensive urgency; I42.0 Dilated cardiomyopathy; I07.1 Rheumatic tricuspid insufficiency; I42.7 Cardiomyopathy due to drug and external agent; Z20.822 Contact with and (suspected) exposure to COVID-19; I50.43 Acute on chronic combined systolic (congestive) and diastolic (congestive) heart failure; Z53.29 Procedure and treatment not carried out because of patient's decision for other reasons; Z91.018 Allergy to other foods; Z80.3 Family history of malignant neoplasm of breast; Z91.148 Patient's other noncompliance with medication regimen for other reason; Z87.891 Personal history of nicotine dependence
CPT/HCPCS: 36415; 71045; 80048; 80061; 80307; 83036; 83880; 84443; 84484; 85025; 87426; 87804; 93005; 94640; 96374; 99291; 99292; G0378; J2405